=== PATIENT | male | born 1945 | race Caucasian/White ===

== ENCOUNTER 2017-10-28 11:02 | Inpatient (IN) | payer MEDICARE, OTHER ==
[2017-10-28] MEDS ORDERED: Fentanyl 100 MCG/2 ML VIAL ONE ×2 (11:15→11:40)
[2017-10-28 11:20] LABS: #Eosinphils 0.1 thou/uL (0.0-0.7); #Lymphocytes 2.5 thou/uL (1.20-3.40); #Monocytes 1.2 thou/uL (0.11-0.59); #Neutrophils 8.9 thou/uL (1.40-6.50); %Basophils 0.4 % (0.0-1.0); %Eosinophils 0.7 % (0.0-10.0); %Lymphocytes 19.5 % (21.0-51.0); %Monocytes 9.2 % (0.0-10.0); %Neutrophils 70.2 % (42.0-75.0); Hemoglobin 15.3 g/dL (14.0-18.0); Mean Corpuscular HGB CONC 33.7 g/dL (32.0-36.0); Mean Corpuscular Hemoglobin 31.5 pg (27.0-31.0); Mean Corpuscular Volume 93.7 fL (78.0-98.0); Mean Platelet Volume 6.7 fL (7.4-10.4); Platelet Count 242 thou/uL (130-400); RBC Distribution Width 12.5 % (11.5-14.5); Red Blood Cell (RBC) Count 4.86 mill/uL (4.70-6.10); White Blood Cell (WBC) Count 12.7 thou/uL (4.8-10.8)
--- NOTE | 2017-10-28 11:25 | CT ---
CT HEAD WITHOUT CONTRAST: Technique: Multiple axial tomograms were obtained through the head without IV enhancement. Indications: Level 2 trauma. Fall with injury to head. FINDINGS: Ventricles have normal size and position. Mild cortical volume loss. No evidence of intracranial hemo rrhage. No evidence of mass or infarct. Sinuses and mastoids are aerated. Prior surgical fixation of the anterior mandible. IMPRESSION: No evidence of acute intracranial hemorrhage. Findings were related to Dr. Gonzalze. POS: [facility]
[2017-10-28 11:29] LABS: PTT 26.2 SEC (22.9-36.1); Prothrombin Time 13.4 SEC (12.0-14.7)
--- NOTE | 2017-10-28 11:29 | CT ---
CT CERVICAL SPINE WITHOUT CONTRAST: Comparison: None. History: Level 2 trauma after falling 12 feet. Patient complains of right shoulder pain and neck pain . Technique: Multiple contiguous axial images were obtained in a CT of the cervical spine without contr ast. Sagittal and coronal reformats were performed. FINDINGS: There are mild degenerative changes in the cervical spine. The vertebral bodies demonstrate normal he ight and alignment without acute fracture or subluxation. No prevertebral soft tissue swelling is see n. The posterior facets are well aligned. Normal alignment of the skull base with the cervical spine is seen. IMPRESSION: Degenerative changes of the cervical spine without acute osseous abnormality. Dr. Gonzalez notified of t he findings at 11:21 a.m. on 10-28-17. POS: [facility]
[2017-10-28] MEDS ORDERED: Adacel (T-DAP) 0.5 ML VIAL ONE (11:40)
[2017-10-28 11:43] LABS: ALT (SGPT) 27 U/L (8-55); AST (SGOT) 28 U/L (5-34); Alkaline Phosphatase 48 U/L (40-150); Anion Gap 17 mmol/L (10-20); BUN (Urea Nitrogen) 11 mg/dL (8.4-25.7); Bilirubin, Total 0.8 mg/dL (0.2-1.2); Calc. Creatinine Clearance 0 mL/min (70-130); Calcium 9.3 mg/dL (7.8-10.44); Carbon Dioxide 22 mmol/L (23-31); Chloride 104 mmol/L (98-107); Estimated GFR-MDRD 69; Globulin 2.8 g/dL (2.4-3.5); Glucose 166 mg/dL (83-110); Potassium 3.7 mmol/L (3.5-5.1); Protein, Total 6.8 g/dL (5.8-8.1); Sodium 139 mmol/L (136-145)
--- NOTE | 2017-10-28 11:44 | RAD ---
RIGHT SHOULDER THREE VIEW: Indication: Post-traumatic injury of the right shoulder with pain. FINDINGS: There is moderate osteoarthritis. No fracture identified. A high riding humeral head is seen which ca n be present in the setting of chronic rotator cuff tear. Correlate clinically. IMPRESSION: 1. No acute fracture of the right shoulder. 2. Chronic findings as discussed above. POS: [facility]
--- NOTE | 2017-10-28 11:53 | CT ---
CT OF THE CHEST WITH CONTRAST CT OF THE ABDOMEN AND PELVIS WITH CONTRAST LIMITED CT OF THE THORACIC AND LUMBOSACRAL SPINE WITH CONTRAST: History: Fell from 12 ft with right shoulder pain and pelvic pain. Technique: 1. Multiple contiguous axial images were obtained in a CT of the chest with contrast. Coronal reforma ts were performed. 2. Multiple contiguous axial images were obtained in a CT of the abdomen and pelvis with contrast. Co sarahy reformats were performed. 3. Limited CT of the thoracic and lumbosacral spines were performed. Sagittal and coronal reformats w ere created based off images obtained in the chest, abdomen, and pelvic CTs. FINDINGS: CT CHEST: No pneumothorax or pleural effusion are seen. There is atelectasis in the lung bases. A calcified gra nuloma is seen in the right lower lobe. No suspicious mass or infiltrate are seen in the lungs. The heart is normal in size without focal cardiac abnormality. Calcifications in the coronary arterie s. There are calcified right hilar and mediastinal lymph nodes. The chest wall soft tissues and bones of the thorax are unremarkable. No obvious right shoulder abnor mality is seen. CT ABDOMEN/PELVIS: Patient is status post cholecystectomy. The liver, kidneys, adrenal glands, spleen, and pancreas are unremarkable. No free air is seen in the abdomen or pelvis. There is fluid on the right pelvic sidewa ll from the patient's pelvic fractures described below. Scattered diverticula are seen in the colon. The small bowel and appendix are unremarkable. No abdomi nal or pelvic lymphadenopathy are seen. Atherosclerotic calcifications are seen in the aorta. There are complex right sided pelvic fractures. There is a fracture of the right iliac wing which ext ends down to the iliac roof. There is separation of the pelvis and inward protrusion of the femoral h ead into the pelvis. Fracture of the bones surrounding the right hip joint are comminuted in appearan ce. There is also a segmental fracture of the right inferior pubic ramus. No left sided pelvic fractu res are seen. There is extensive hematoma surrounding the comminuted right hip fracture with displace ment of the urinary bladder to the left by the hematoma. No fracture fragments are seen near the urin abimael bladder. LIMITED CT OF THE THORACIC AND LUMBOSACRAL SPINE: There are moderate degenerative changes throughout the spine. The vertebral bodies and intervertebral discs demonstrate normal height and alignment without fracture or subluxation. No prevertebral soft tissue swelling is seen. IMPRESSION: 1. No evidence of acute intrathoracic abnormality. 2. No evidence of acute intraabdominal/pelvic abnormality. 3. Complex right sided pelvic fractures involving the right hip/acetabulum. 4. No evidence of acute osseous abnormality of the thoracic or lumbosacral spine. Dr. Gonzalez notified of the findings at 11:38 a.m. on 10-28-17. POS: [facility]
--- NOTE | 2017-10-28 11:54 | RAD ---
SINGLE VIEW OF THE PELVIS: Comparison: Pelvic CT 10-28-17 History: Fall with pelvic pain. FINDINGS: A single view of the pelvis shows a complex fracture involving the acetabulum of the right hip. There is protrusion of the femoral head toward the pelvis and displacement of the fracture fragments media lly. The urinary bladder is also displaced to the left. No fracture of the femur is seen. IMPRESSION: Complex acetabular fracture. POS: [facility]
--- NOTE | 2017-10-28 11:57 | RAD ---
TWO VIEWS RIGHT HIP: History: Fall with right hip pain. FINDINGS: Two views of the right hip shows a complex fracture of the acetabulum. This fracture is comminuted. T here is protrusion of the femoral head into the pelvis with displacement of the fracture fragments me dially. There is separation of the bones of the acetabulum. There is displacement of the urinary blad sp to the left. IMPRESSION: Complex comminuted right acetabular fracture. POS: [facility]
[2017-10-28] MEDS ORDERED: Ondansetron HCl/PF 4 MG/2 ML Vial ONE (12:10)
[2017-10-28] MEDS ORDERED: CEFAZOLIN/Water 2 GM/20 ML SYRINGE SLOW IVP SCH (12:15)
[2017-10-28] MEDS ORDERED: ISOVUE-370 76%-LOCM 1 ML ONE (12:31)
[2017-10-28] MEDS ORDERED: Acetaminophen 1,000 MG in Premix Bag 1 BAG IVPB SCH (12:45)
[2017-10-28 13:02] LABS: Bilirubin Negative (Negative); Blood, Urine Negative (Negative); Clarity CLEAR (Clear); Glucose, Urine (Dipstick) Negative (Negative); Leukocyte Negative (Negative); Nitrite Negative (Negative); Protein, Urine (Dipstick) Trace mg/dL (Neg-Trace); Specific Gravity, Urine 1.028 (1.002-1.036); Urobilinogen 0.2 mg/dL (0.2-1.0)
--- NOTE | 2017-10-28 13:31 | CON ---
DATE OF CONSULTATION: 10/28/2017 CHIEF COMPLAINT: Right hip pain. HISTORY OF PRESENT ILLNESS: Mr. Weston is a 71-year-old male who fell 8 feet from a ladder. He was working on a barn. He landed on his right side. He had immediate pain. He was unable to ambulate. He was taken to the emergency department by EMS. X-rays and CT scan have been completed. These styles ve demonstrated an acetabulum fracture of the right hip. No other injuries have been identified so f ar. He has received fentanyl for pain control. He is resting comfortably. PAST MEDICAL HISTORY: Prostate hypertrophy. Otherwise, he denies active medical problems. PAST SURGICAL HISTORY: No recent surgeries. ALLERGIES: None. 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 He denies tobacco, alcohol, or drug use. He is very active. Family is at bedside. FAMILY MEDICAL HISTORY: Noncontributory. REVIEW OF SYSTEMS: Positive for right hip pain and right shoulder pain. Otherwise, negative 10-poin t review of systems. MEDICATIONS: Flomax. PHYSICAL EXAMINATION: VITAL SIGNS: Stable. He is normotensive, 98% on room air. GENERAL: Lying supine in no apparent distress. HEENT: Normocephalic, atraumatic. Cervical collar is in place. RESPIRATORY: Breathing comfortably. ABDOMEN: Soft, nontender, nondistended. CARDIOVASCULAR: Pulses palpable and regular. MUSCULOSKELETAL: The patient's right lower extremity has pain with motion. He has near equal leg le ngth. He is able to flex and extend the foot and ankle. Palpable dorsalis pedis pulse. Sensation i s intact distally. The right shoulder has mild swelling. He has pain with active motion. Passive m otion is near full. IMAGES: AP pelvis x-ray, hip x-ray and CT scan of the pelvis is reviewed. The patient has a both co lumn acetabulum fracture with significant displacement and comminution. IMPRESSION: Elderly male with both column right acetabulum fracture. PLAN: At this point, the patient will be admitted to the hospital. He will have pain control. He w ill have tertiary workup and survey for trauma. He will have DVT prophylaxis. He should be n.p.o. m idnight. I have reviewed his injury with him and surgical plan. We will plan for open reduction int ernal fixation of the right acetabulum tomorrow. He is aware of prolonged recovery process including approximately 2 months of nonweightbearing. He is aware of risk, which do include post-traumatic ar thritis, the need for further surgery and others such as DVT, PE, nerve or vascular injury or medical complication.
[2017-10-28 13:39] LABS: Magnesium 2.2 mg/dL (1.6-2.6)
[2017-10-28 13:49] LABS: Phosphorus 1.1 mg/dL (2.3-4.7)
[2017-10-28] MEDS ORDERED: Fentanyl 100 MCG/2 ML VIAL SLOW IVP PRN (14:36)
[2017-10-28] MEDS ORDERED: Dextrose 50% Abboject 50 ML SYRINGE SLOW IVP PRN (14:36)
[2017-10-28] MEDS ORDERED: Dextrose 5% in Water 1,000 ML IV PRN (14:36)
--- NOTE | 2017-10-28 15:50 | HP ---
DATE OF ADMISSION: 10/28/2017 ADMITTING PHYSICIAN: Jung Saldaña DO CONSULTING PHYSICIAN: Dr. Fredy Pritchett, Orthopedics. REASON FOR HOSPITALIZATION: Fall from ladder. HPI: Mr. Weston is a 71 year old male who was in his usual state of health today when he was approximately 8 feet up on a ladder pulling some boards off of a barn when one of the boards gave way and he fell off of the ladder onto the ground. He denies LOC. He reports immediate right hip and right shoulder pain. He was transported to [facility] via [facility]. He was a level two trauma activation. He was hemodynamically stable and neurologically intact in the ED. A right acetabular fracture was identified. Trauma was consulted for admission and management. Dr. Pritchett, Orthopedics, was consulted by the ED physician. PAST MEDICAL HISTORY: 1. Diverticulitis. 2. Benign prostatic hypertrophy. PAST SURGICAL HISTORY: 1. Sigmoidectomy. 2. Cholecystectomy. 3. Left inguinal hernia repair. 4. Jaw reconstruction. SOCIAL HISTORY: Alcohol, none. Tobacco, former cigarette smoker and now uses smokeless tobacco. Drugs, none. CURRENT MEDICATIONS: 1. Flomax 0.4 mg once daily. 2. Avodart 0.5 mg once daily. 3. Aspirin 81 mg once daily. 4. Multivitamin once daily. ALLERGIES: 1. CODEINE. 2. MORPHINE. 3. DEMEROL. 4. PENICILLIN. LABORATORY DATA: CBC: WBC 12.7, RBC 4.86, hemoglobin 15.3, hematocrit 45.5, platelets 242,000. Coagulation: PT 13.4, INR 1.0. Chemistry: Sodium 139, potassium 3.7, chloride 104, carbon dioxide 22, BUN 11, creatinine 1.05, glucose 166, calcium 9.3, total bilirubin 0.8, AST 28, ALT 27, alkaline phosphatase 48. EKG: Rate 84, right bundle branch block. REVIEW OF SYSTEMS: Constitutional: The patient denies fever, chills, recent weight loss or generalized malaise. HEENT: The patient denies otorrhea, rhinorrhea, neck pain or sore throat. Cardiovascular: The patient denies chest pain, palpitations or syncope. Respiratory: The patient denies shortness of breath, wheezing. Abdomen: The patient denies abdominal pain, nausea, vomiting, diarrhea or constipation. Musculoskeletal: The patient reports pain to the right shoulder with movement. The patient reports pain to the right hip with movement. Denies focal deficit or numbness, tingling. Neurologic: Denies seizures or focal deficit. Skin: Denies rashes or skin changes. Hemolymphatic: Denies abnormal bleeding. PHYSICAL EXAMINATION: VITAL SIGNS: Blood pressure 143/86, pulse 83, respirations 17, temperature 98.4 , pain 7/10, O2 sat 98% on 2 liters O2. CONSTITUTIONAL: A 71-year-old man, appears consistent with stated age, no acute distress, well nourished, well developed. HEENT: Cervical collar in place. Atraumatic, normocephalic. Denies posterior neck tenderness. Trachea midline. No JVD. PULMONARY/CHEST: Bilateral breath sounds clear. Chest movement symmetrical. CARDIOVASCULAR: Regular rate and rhythm. ABDOMEN: Soft, nontender, nondistended. Pelvis with pain when moving right hip. EXTREMITIES: Pain with movement of right shoulder. Neurovascularly intact in all extremities. Cap refill brisk. 2+ pulses. NEUROLOGIC: GCS 15. Awake, alert, oriented x3. SKIN: Warm, dry, normal in color. BACK: No tenderness. ASSESSMENT: 1. Status post fall from height, approximately 8 feet. 2. Right acetabular comminuted fracture. PLAN: 1. Admit to hospital by Trauma Services. 2. Consult Dr. Pritchett, Orthopedics. Dr. Pritchett reports he plans to take the patient to OR tomorrow. 3. Check a.m. labs. 4. Regular diet. N.p.o. after midnight. 5. Scheduled IV Tylenol for pain control with fentanyl for breakthrough pain. 6. Physical and occupational therapy evaluation with orthopedic restrictions postoperatively. 7. Case management for discharge planning. The patient was seen and examined with Dr. Saldaña who agrees with plan. [facility]
[2017-10-28 16:07] LABS: Magnesium 2.2 mg/dL (1.6-2.6); Phosphorus 2.9 mg/dL (2.3-4.7)
[2017-10-28] MEDS: Acetaminophen 1,000 MG in Premix Bag 1 BAG IVPB SCH (18:19)
[2017-10-28] MEDS: traMADol HCl 50 MG TAB PO PRN (19:13)
[2017-10-28] MEDS: Ondansetron HCl/PF 4 MG/2 ML Vial IVP PRN (19:14)
[2017-10-28] MEDS ORDERED: Ketorolac Tromethamine 30 MG/ML VIAL IVP SCH (19:15)
[2017-10-28] MEDS: Cyclobenzaprine 10 MG TAB PO PRN (20:36)
[2017-10-28] MEDS: Famotidine/PF 20 mg/2ml Vial SLOW IVP SCH (21:22)
[2017-10-29] MEDS: Acetaminophen 1,000 MG in Premix Bag 1 BAG IVPB SCH ×4 (00:22→19:01)
[2017-10-29] MEDS: Sodium Chloride 0.9% 1,000 ML IV SCH ×4 (00:48→20:19)
[2017-10-29] MEDS: traMADol HCl 50 MG TAB PO PRN ×2 (01:28→22:31)
[2017-10-29] MEDS: Ondansetron HCl/PF 4 MG/2 ML Vial IVP PRN (01:28)
[2017-10-29] MEDS: Cyclobenzaprine 10 MG TAB PO PRN ×2 (05:21→22:31)
[2017-10-29 06:24] LABS: #Basophils 0.1 thou/uL (0.0-0.2); #Eosinphils 0.1 thou/uL (0.0-0.7); #Lymphocytes 1.9 thou/uL (1.20-3.40); #Neutrophils 7.7 thou/uL (1.40-6.50); %Basophils 0.5 % (0.0-1.0); %Eosinophils 0.7 % (0.0-10.0); %Monocytes 9.5 % (0.0-10.0); %Neutrophils 71.3 % (42.0-75.0); Hemoglobin 12.2 g/dL (14.0-18.0); Mean Corpuscular HGB CONC 33.3 g/dL (32.0-36.0); Mean Corpuscular Hemoglobin 31.3 pg (27.0-31.0); Mean Corpuscular Volume 93.9 fL (78.0-98.0); Mean Platelet Volume 6.9 fL (7.4-10.4); Platelet Count 203 thou/uL (130-400); RBC Distribution Width 12.6 % (11.5-14.5); Red Blood Cell (RBC) Count 3.91 mill/uL (4.70-6.10); White Blood Cell (WBC) Count 10.7 thou/uL (4.8-10.8)
[2017-10-29 06:40] LABS: Anion Gap 8 mmol/L (10-20); BUN (Urea Nitrogen) 10 mg/dL (8.4-25.7); Calc. Creatinine Clearance 0 mL/min (70-130); Calcium 7.8 mg/dL (7.8-10.44); Carbon Dioxide 25 mmol/L (23-31); Chloride 105 mmol/L (98-107); Estimated GFR-MDRD 85; Glucose 122 mg/dL (83-110); Magnesium 2.1 mg/dL (1.6-2.6); Phosphorus 3.4 mg/dL (2.3-4.7); Potassium 4.1 mmol/L (3.5-5.1); Sodium 134 mmol/L (136-145)
[2017-10-29] MEDS ORDERED: Clindamycin/D5W 900 MG in Premix Bag 1 BAG IVPB SCH (08:00)
[2017-10-29] MEDS ORDERED: Clindamycin/D5W 900 mg/50 ml Premix Bag ONE (10:04)
[2017-10-29] MEDS ORDERED: Levofloxacin 500 mg/D5W 100 ml Premix Bag ONE (10:05)
[2017-10-29] MEDS ORDERED: Fentanyl 250 MCG/5 ML VIAL ONE (10:37)
--- NOTE | 2017-10-29 11:52 | PRG ---
DATE OF SERVICE: 10/29/2017 ATTENDING PHYSICIAN: Dr. Jung Saldaña SUBJECTIVE: Mr. Weston is a 71-year-old male who was admitted 1 day ago after a fall from an 8 foot ladder when he was working on his barn. He was evaluated in the ER. A right acetabular fracture wa s identified. He was admitted to the hospital by the Trauma Service. Dr. Pritchett, Orthopedics, wa s consulted. The patient is to go to OR today for fixation of fracture. OBJECTIVE: VITAL SIGNS: Temperature 98.0, pulse 56, respirations 18, O2 sat 94% on room air, blood pressure 122 /70. HEENT: Atraumatic, normocephalic. PULMONARY: Bilateral breath sounds clear. No respiratory distress. HEART: Regular rate and rhythm. Heart sounds normal. ABDOMEN: Soft, nontender, nondistended. Pain to the right hip with palpation and movement. EXTREMITIES: Cap refill brisk in all extremities, 2+ pulses in all extremities. Neurovascularly int act. NEUROLOGIC: GCS 15. Awake, alert, oriented x3. LABORATORY DATA: CBC: WBC 10.7, RBC 3.91, hemoglobin 12.2, hematocrit 36.7, platelets 203. [employer] ry: Sodium 134, potassium 4.1, chloride 105, carbon dioxide 25, BUN 10, creatinine 0.88, glucose 122 , calcium 7.8, phosphorus 3.4, magnesium 2.1. ASSESSMENT: 1. Status post fall from height. 2. Right acetabular fracture. 3. Acute traumatic pain, well controlled with adjustment of pain medication yesterday. PLAN: 1. The patient to OR today with Dr. Pritchett. 2. Continue analgesia as ordered. 3. Restart home medications as appropriate. 4. Physical and occupational therapy with orthopedic restrictions postoperatively. 5. Rehabilitation referral sent. 6. Pepcid for gastritis prophylaxis. 7. SCDs for DVT prophylaxis until cleared for chemical DVT prophylaxis by Orthopedic Service. The patient was seen and examined with Dr. Saldaña who agrees with the plan.
[2017-10-29] MEDS: Famotidine/PF 20 mg/2ml Vial SLOW IVP SCH (12:35)
[2017-10-29] MEDS ORDERED: Albumin 5% 500 ML ONE (13:53)
[2017-10-29] MEDS ORDERED: CeleCOXIB 100 MG CAP PO PRN (14:12)
[2017-10-29] MEDS: Tamsulosin HCl 0.4 MG CAP PO SCH (14:51)
[2017-10-29] MEDS: Dutasteride 0.5 MG CAP PO SCH (14:51)
[2017-10-29] MEDS ORDERED: Fentanyl 100 MCG/2 ML VIAL ONE (15:29)
--- NOTE | 2017-10-29 15:40 | RAD ---
THREE VIEWS OF THE PELVIS 10/29/17 COMPARISON: CT of the pelvis 10/28/17 and pelvic/hip radiographs 10/28/17. HISTORY: Complex right acetabular fracture. FINDINGS/IMPRESSION: Three limited fluoroscopic views of the right hip are submitted for interpretation. The patient is st atus post plate and screw fixation of the complex acetabular fracture. There still appears to be disp lacement of a fracture fragment medially. The femoral head appears better seated within the acetabulu m than on the CT and the preoperative radiograph. POS: [facility]
[2017-10-29 17:13] LABS: #Lymphocytes 0.9 thou/uL (1.20-3.40); #Monocytes 1.1 thou/uL (0.11-0.59); %Basophils 0.1 % (0.0-1.0); %Eosinophils 0.1 % (0.0-10.0); %Lymphocytes 6.1 % (21.0-51.0); %Monocytes 7.6 % (0.0-10.0); %Neutrophils 86.1 % (42.0-75.0); Hemoglobin 9.3 g/dL (14.0-18.0); Mean Corpuscular HGB CONC 33.5 g/dL (32.0-36.0); Mean Corpuscular Hemoglobin 31.8 pg (27.0-31.0); Mean Corpuscular Volume 94.9 fL (78.0-98.0); Mean Platelet Volume 6.7 fL (7.4-10.4); Platelet Count 178 thou/uL (130-400); RBC Distribution Width 12.5 % (11.5-14.5); Red Blood Cell (RBC) Count 2.93 mill/uL (4.70-6.10)
[2017-10-29 17:31] LABS: Anion Gap 10 mmol/L (10-20); BUN (Urea Nitrogen) 12 mg/dL (8.4-25.7); Calc. Creatinine Clearance 0 mL/min (70-130); Calcium 7.6 mg/dL (7.8-10.44); Carbon Dioxide 22 mmol/L (23-31); Chloride 106 mmol/L (98-107); Estimated GFR-MDRD 74; Glucose 157 mg/dL (83-110); Phosphorus 2.8 mg/dL (2.3-4.7); Potassium 4.3 mmol/L (3.5-5.1); Sodium 134 mmol/L (136-145)
--- NOTE | 2017-10-29 18:57 | OP ---
DATE OF PROCEDURE: 10/29/2017 OPERATION: Open reduction internal fixation of right both column acetabulum fracture. PREOPERATIVE DIAGNOSIS: Right both column acetabulum fracture. POSTOPERATIVE DIAGNOSIS: Right both column acetabulum fracture. COMPLICATIONS: None. ESTIMATED BLOOD LOSS: 1200 mL SURGEON: Fredy Pritchett M.D. ALLEY CLEANER: Dr. Delonte Kerr. IMPLANTS: A 7-hole Synthes pelvic reconstruction plate with multiple nonlocking screws. INDICATIONS: Mr. Weston is a 71-year-old male who fell from a ladder. He fractured his right aceta bulum. He was indicated for open reduction internal fixation to restore anatomic alignment and provi de stability to his hip. Risks have been reviewed in detail. He has elected to proceed with the ope ration. Risks are extensive and do include nerve or vascular injury, DVT, PE, infection, malunion, p osttraumatic arthritis and the need for further surgery such as hip arthroplasty. He and his family are aware of and want to proceed. DESCRIPTION OF PROCEDURE: Mr. Weston was identified in the preoperative holding area. His correct extremity was marked. He was carried to the operating room. He was positioned supine initially. Ge neral anesthesia was induced. We then turned the patient into the prone position. He was given intr avenous antibiotics. The right lower extremity was prepped and draped in sterile fashion. At this point, we made a small incision over his knee. We inserted a Steinmann pin through the dista l femur. This was attached to a traction frame and 50-pound weight were added. This allowed longitu dinal traction on the limb. At this point, we proceeded with Amrik approach to the hip. We dissected down through the subcutane ous tissues to the fascia which was incised. We then exposed the short external rotator . The piriformis tendon was incised and tagged. We then elevated the from the posterior pelvis. We encountered the comminuted and displaced fracture with multiple fracture lines. The quadrilateral pl ate was severely medialized. We placed a corkscrew in the greater trochanter and this allowed us to pull laterally reducing the quadrilateral plate. At this point, we used intraoperative x-ray as well as K-wires and reduction clamp to obtain an anato paul reduction of the posterior aspect of the fracture in the quadrilateral plate. Once this was acco mplished, we applied a 7-hole Synthes pelvic reconstruction plate. Two screws were placed proximally and 2 screws were placed distally. This held our reduction and applying rigid fixation to the fract ure. Finally, we placed a lag screw and a posterior wall component which was a free fracture fragmen t. We took again x-ray images in orthogonal planes including obturator and iliac oblique x-rays. We were satisfied with hardware placement. The posterior acetabulum fracture was well reduced. There was some distraction of the anterior most component of the fracture. We decided to accept this. We then thoroughly irrigated with copious lavage. We closed with a #2 Vicryl suture, followed by 2-0 Vi cryl suture and doug for the skin. A sterile dressing was applied at this point and the traction pin was removed. The patient was taken to the recovery room in good condition without complication.
[2017-10-29] MEDS: Clindamycin/D5W 900 MG in Premix Bag 1 BAG IVPB SCH (19:01)
[2017-10-29] MEDS: Famotidine 20 MG TAB PO SCH ×2 (20:16→20:19)
[2017-10-29] MEDS ORDERED: PROPOFOL 200 MG/20 ML VIAL ONE (20:33)
[2017-10-29] MEDS ORDERED: Lidocaine 1% PF 5 ML VIAL ONE (20:33)
[2017-10-29] MEDS ORDERED: Esmolol 100 MG/10 ML VIAL ONE (20:33)
[2017-10-29] MEDS ORDERED: ePHEDrine/0.9% NaCl/PF SYRINGE 50 mg/10 ml ONE ×2 (20:33)
[2017-10-29] MEDS ORDERED: Ondansetron HCl/PF 4 MG/2 ML Vial ONE (20:33)
[2017-10-29] MEDS ORDERED: Glycopyrrolate 0.2 MG/ML 5 ML SYRINGE ONE (20:33)
[2017-10-29] MEDS ORDERED: PHENYLEPHRINE-NS 100 MCG/ML 10 ML SYRINGE ONE (20:33)
[2017-10-29 23:25] VITALS: BMI 26.4
[2017-10-30] MEDS: Clindamycin/D5W 900 MG in Premix Bag 1 BAG IVPB SCH ×2 (01:51→10:03)
[2017-10-30] MEDS: Cyclobenzaprine 10 MG TAB PO PRN (04:47)
[2017-10-30] MEDS: traMADol HCl 50 MG TAB PO PRN (04:47)
[2017-10-30 06:26] LABS: #Lymphocytes 1.5 thou/uL (1.20-3.40); #Neutrophils 8.1 thou/uL (1.40-6.50); %Basophils 0.2 % (0.0-1.0); %Eosinophils 0.1 % (0.0-10.0); %Lymphocytes 14.1 % (21.0-51.0); %Monocytes 9.3 % (0.0-10.0); %Neutrophils 76.3 % (42.0-75.0); Mean Corpuscular HGB CONC 34.9 g/dL (32.0-36.0); Mean Corpuscular Hemoglobin 33.1 pg (27.0-31.0); Mean Corpuscular Volume 94.6 fL (78.0-98.0); Mean Platelet Volume 6.7 fL (7.4-10.4); Platelet Count 149 thou/uL (130-400); RBC Distribution Width 12.5 % (11.5-14.5); Red Blood Cell (RBC) Count 2.42 mill/uL (4.70-6.10); White Blood Cell (WBC) Count 10.6 thou/uL (4.8-10.8)
[2017-10-30 06:50] LABS: Anion Gap 10 mmol/L (10-20); BUN (Urea Nitrogen) 14 mg/dL (8.4-25.7); Calc. Creatinine Clearance 94 mL/min (70-130); Calcium 7.7 mg/dL (7.8-10.44); Carbon Dioxide 25 mmol/L (23-31); Chloride 105 mmol/L (98-107); Estimated GFR-MDRD 88; Glucose 134 mg/dL (83-110); Magnesium 1.8 mg/dL (1.6-2.6); Phosphorus 2.4 mg/dL (2.3-4.7); Potassium 4.4 mmol/L (3.5-5.1); Sodium 136 mmol/L (136-145)
[2017-10-30] MEDS: Ascorbic Acid 500 mg Chewable Tablet PO SCH ×2 (10:01→20:32)
[2017-10-30] MEDS: Ferrous Sulfate 325 MG TAB PO SCH ×2 (10:02→17:31)
[2017-10-30] MEDS: Dutasteride 0.5 MG CAP PO SCH (10:02)
[2017-10-30] MEDS: Tamsulosin HCl 0.4 MG CAP PO SCH (10:02)
[2017-10-30] MEDS: Famotidine 20 MG TAB PO SCH ×2 (10:02→20:32)
[2017-10-30] MEDS ORDERED: traMADol HCl 50 MG TAB PO PRN (10:03)
[2017-10-30] MEDS: Sodium Chloride 0.9% 1,000 ML IV SCH ×3 (10:07→20:31)
[2017-10-30] MEDS: Enoxaparin Sodium 30 MG/0.3 ML SYRINGE SC SCH ×2 (10:07→20:31)
[2017-10-30] MEDS: Acetaminophen 500 MG TAB PO SCH ×3 (10:30→22:50)
[2017-10-30] MEDS: traMADol HCl 50 MG TAB PO SCH ×3 (10:30→22:50)
[2017-10-30] MEDS: CeleCOXIB 100 MG CAP PO SCH ×2 (10:31→20:32)
--- NOTE | 2017-10-30 13:59 | PRG ---
DATE OF SERVICE: 10/30/2017 ATTENDING PHYSICIAN: Dr. Jung Saldaña SUBJECTIVE: Mr. Weston is a 71-year-old male who was admitted 2 days ago after a fall from an 8 juan t ladder while working on a barn. He is now postoperative day #1, status post ORIF of right both col umn acetabular fracture. He began working with physical and occupational therapy today. When mobile pain was not well controlled. OBJECTIVE: VITAL SIGNS: Temperature 98.3, pulse 91, respirations 18, O2 sat 93% on room air, blood pressure 122 /62. HEENT: Atraumatic, normocephalic. PULMONARY: Bilateral breath sounds clear. No respiratory distress. HEART: Regular rate and rhythm. Heart sounds normal. ABDOMEN: Soft, nontender, nondistended. EXTREMITIES: Cap refill brisk all extremities, 2+ pulses all extremities. Neurovascularly intact. NEUROLOGIC: GCS 15. Awake, alert and oriented x3. LABORATORY DATA: CBC: WBC 10.6, RBC 2.42, hemoglobin 8.0, down from 9.3 yesterday. Hematocrit 22.9 , platelets 149. Chemistry: Sodium 136, potassium 4.4, chloride 105, carbon dioxide 25, BUN 14, cre atinine 0.85, glucose 134, calcium 7.7, phosphorus 2.4, magnesium 1.8. ASSESSMENT: 1. Status post fall from height. 2. Right acetabular fractures. 3. Postoperative day #1 status post open reduction and internal fixation of right acetabulum. 4. Acute traumatic pain, poorly controlled. 5. History of benign prostatic hypertrophy. PLAN: 1. Adjust pain medicine. We will schedule Tylenol and tramadol. We will also schedule Flexeril. 2. Celebrex added by Orthopedic Service, Dr. Kerr. Patient to be on Celebrex for 3-4 weeks to l ower risk for heterotopic bone formation. 3. Continue mobilizing with physical and occupational therapy. 4. Continue home medications as appropriate. 5. Encourage incentive spirometry, pulmonary toilet. 6. Pepcid for gastritis prophylaxis. 7. SCDs for deep venous thrombosis prophylaxis. Lovenox added this morning after discussion with Or thopedic Service. The patient was seen and examined with Dr. Saldaña who agrees with plan.
[2017-10-30] MEDS: Cyclobenzaprine 10 MG TAB PO SCH ×2 (14:08→20:32)
[2017-10-31] MEDS: Acetaminophen 500 MG TAB PO SCH ×4 (05:51→22:13)
[2017-10-31] MEDS: traMADol HCl 50 MG TAB PO SCH ×4 (05:52→22:11)
--- NOTE | 2017-10-31 09:07 | PQF ---
CLINICAL DOCUMENTATION IMPROVEMENT CLARIFICATION FORM: ICD-10 Updated PLEASE DO AN ADDENDUM TO THE PROGRESS NOTE WITH ANY DOCUMENTATION UPDATES OR ADDITIONS AND CARRY THROUGH TO DC SUMMARY. THANK YOU. DATE: 10/31 ATTN: DR. GEM CONTI Please exercise your independent, professional judgment in responding to the clarification form. Clinical indicators are provided on the bottom of this form for your review. Please check appropriate box(s): [ x] Acute blood loss anemia [ ] Post-op anemia related to acute blood loss [ ] Other diagnosis [ ] Unable to determine For continuity of documentation, please document condition throughout progress notes and discharge summary. Thank You. CLINICAL INDICATORS - SIGNS / SYMPTOMS / LABS H/H: 15.3/45.5 (ADMIT) 12.2/36.7; 9.3/27.8 (10/29) 8.0/22.9 (10/30) 10/29 - OPERATIVE NOTE: EBL 1200 ML RISK FACTOR: ORIF RIGHT BOTH COLUMN ACETABULUM FRACTURE W/EBL 1200 ML TREATMENT: SERIAL H/H (10/28 -) TYPE & SCREEN BLOOD (10/28) THANK YOU! Lucia (This form is maintained as a part of the permanent medical record) 2014 [employer] All Rights Reserved Lucia Durán RN, BSN [email or web address] Office: [phone] [facility]ENTER[facility]
[2017-10-31 10:04] LABS: #Eosinphils 0.1 thou/uL (0.0-0.7); #Lymphocytes 1.9 thou/uL (1.20-3.40); #Monocytes 1.2 thou/uL (0.11-0.59); #Neutrophils 8.1 thou/uL (1.40-6.50); %Basophils 0.4 % (0.0-1.0); %Eosinophils 0.8 % (0.0-10.0); %Lymphocytes 16.9 % (21.0-51.0); %Monocytes 10.2 % (0.0-10.0); %Neutrophils 71.8 % (42.0-75.0); Mean Corpuscular HGB CONC 33.8 g/dL (32.0-36.0); Mean Corpuscular Volume 94.7 fL (78.0-98.0); Mean Platelet Volume 6.9 fL (7.4-10.4); Platelet Count 166 thou/uL (130-400); RBC Distribution Width 12.6 % (11.5-14.5); Red Blood Cell (RBC) Count 2.19 mill/uL (4.70-6.10); White Blood Cell (WBC) Count 11.3 thou/uL (4.8-10.8)
[2017-10-31] MEDS: Famotidine 20 MG TAB PO SCH ×2 (10:05→21:13)
[2017-10-31] MEDS: Ascorbic Acid 500 mg Chewable Tablet PO SCH ×3 (10:05→21:17)
[2017-10-31] MEDS: Dutasteride 0.5 MG CAP PO SCH (10:05)
[2017-10-31] MEDS: Cyclobenzaprine 10 MG TAB PO SCH ×3 (10:05→21:13)
[2017-10-31] MEDS: Enoxaparin Sodium 30 MG/0.3 ML SYRINGE SC SCH ×2 (10:06→21:13)
[2017-10-31] MEDS: Tamsulosin HCl 0.4 MG CAP PO SCH (10:06)
[2017-10-31] MEDS: CeleCOXIB 100 MG CAP PO SCH ×2 (10:06→21:13)
[2017-10-31] MEDS: Ferrous Sulfate 325 MG TAB PO SCH ×2 (10:06→16:49)
[2017-10-31 10:36] LABS: Anion Gap 11 mmol/L (10-20); BUN (Urea Nitrogen) 13 mg/dL (8.4-25.7); Calc. Creatinine Clearance 106 mL/min (70-130); Calcium 7.7 mg/dL (7.8-10.44); Carbon Dioxide 24 mmol/L (23-31); Chloride 105 mmol/L (98-107); Estimated GFR-MDRD Greater than 90; Glucose 103 mg/dL (83-110); Magnesium 1.8 mg/dL (1.6-2.6); Phosphorus 1.3 mg/dL (2.3-4.7); Potassium 3.8 mmol/L (3.5-5.1); Sodium 136 mmol/L (136-145)
[2017-10-31] MEDS: traMADol HCl 50 MG TAB PO PRN (14:40)
[2017-10-31] MEDS ORDERED: Potassium Phosphate 30 MMOL in Sodium Chloride 0.9% 250 ML 250 ML IVPB SCH (15:15)
--- NOTE | 2017-10-31 17:28 | PRG ---
DATE OF SERVICE: 10/31/2017 SUBJECTIVE: The patient is postop day #2 status post fall from a ladder in which he sustained a righ t both column acetabular fracture. He underwent open reduction and internal fixation of same. He is doing better today. Yesterday, he had issues with pain control, also noted that his hemoglobin drop ped to 7 today and we will transfuse him. Otherwise, the patient is doing well. His pain is better controlled today. He is tolerating a diet and is awaiting to work with physical and occupational the rapy. PHYSICAL EXAMINATION: VITAL SIGNS: Temperature is 98.4, heart rate 83, blood pressure 117/63, respirations 16, oxygen satu ration is 94% on room air. GENERAL: The patient is resting comfortably in bed. He is awake, alert, and oriented x3. Bart c edel scale is 15. HEENT: Unremarkable. LUNGS: Clear to auscultation with good inspiratory and expiratory effort. HEART: Regular rate and rhythm. ABDOMEN: Soft, flat, nontender with active bowel sounds. Postop dressings are clean, dry, and intac t. EXTREMITIES: Neurovascularly intact x4. LABORATORY DATA: White blood cell count 11.3, hemoglobin 7.0, hematocrit 20.7, platelets 166. Sodiu m 136, potassium 3.8, chloride 105, CO2 of 24, BUN 13, creatinine 0.76, glucose 103, magnesium 1.8, p hosphorus 1.3. RADIOGRAPHS: There are no radiographs to review this morning. ASSESSMENT AND PLAN: 1. Status post fall from ladder. 2. Right acetabular fracture, status post open reduction and internal fixation. 3. Acute blood loss anemia. 4. Hypophosphatemia. Plan will be to transfuse 1 unit of packed red blood cells, replace his electrolytes, supportive care and begin physical and occupational therapy and await final disposition with rehabilitation. The ev aluation and examination were done with Dr. Saldaña this morning during rounds.
[2017-10-31] MEDS: Magnesium Oxide 400 MG TAB PO SCH (21:13)
[2017-11-01] MEDS: traMADol HCl 50 MG TAB PO PRN ×3 (03:46→20:22)
[2017-11-01] MEDS: traMADol HCl 50 MG TAB PO SCH ×3 (05:08→17:19)
[2017-11-01] MEDS: Acetaminophen 500 MG TAB PO SCH ×3 (05:09→17:19)
[2017-11-01 05:52] LABS: #Eosinphils 0.1 thou/uL (0.0-0.7); #Monocytes 0.9 thou/uL (0.11-0.59); #Neutrophils 9.2 thou/uL (1.40-6.50); %Basophils 0.2 % (0.0-1.0); %Eosinophils 0.7 % (0.0-10.0); %Lymphocytes 9.2 % (21.0-51.0); %Monocytes 8.2 % (0.0-10.0); %Neutrophils 81.7 % (42.0-75.0); Hemoglobin 8.3 g/dL (14.0-18.0); Mean Corpuscular HGB CONC 33.5 g/dL (32.0-36.0); Mean Corpuscular Hemoglobin 31.3 pg (27.0-31.0); Mean Corpuscular Volume 93.5 fL (78.0-98.0); Mean Platelet Volume 6.9 fL (7.4-10.4); Platelet Count 209 thou/uL (130-400); RBC Distribution Width 13.5 % (11.5-14.5); Red Blood Cell (RBC) Count 2.64 mill/uL (4.70-6.10); White Blood Cell (WBC) Count 11.2 thou/uL (4.8-10.8)
[2017-11-01 06:53] LABS: Anion Gap 13 mmol/L (10-20); BUN (Urea Nitrogen) 17 mg/dL (8.4-25.7); Calc. Creatinine Clearance 102 mL/min (70-130); Calcium 7.9 mg/dL (7.8-10.44); Carbon Dioxide 23 mmol/L (23-31); Chloride 101 mmol/L (98-107); Estimated GFR-MDRD Greater than 90; Glucose 126 mg/dL (83-110); Magnesium 2.2 mg/dL (1.6-2.6); Phosphorus 2.1 mg/dL (2.3-4.7); Potassium 3.6 mmol/L (3.5-5.1); Sodium 133 mmol/L (136-145)
[2017-11-01] MEDS ORDERED: Potassium Phosphate 30 MMOL in Sodium Chloride 0.9% 250 ML 250 ML IVPB SCH (08:00)
[2017-11-01] MEDS: Dutasteride 0.5 MG CAP PO SCH (09:01)
[2017-11-01] MEDS: Magnesium Oxide 400 MG TAB PO SCH ×2 (09:01→20:23)
[2017-11-01] MEDS: Ferrous Sulfate 325 MG TAB PO SCH ×2 (09:01→17:18)
[2017-11-01] MEDS: Famotidine 20 MG TAB PO SCH ×2 (09:01→20:23)
[2017-11-01] MEDS: CeleCOXIB 100 MG CAP PO SCH ×2 (09:01→20:23)
[2017-11-01] MEDS: Cyclobenzaprine 10 MG TAB PO SCH ×3 (09:01→20:23)
[2017-11-01] MEDS: Tamsulosin HCl 0.4 MG CAP PO SCH (09:01)
[2017-11-01] MEDS: Enoxaparin Sodium 30 MG/0.3 ML SYRINGE SC SCH ×2 (09:02→20:24)
[2017-11-01] MEDS: Ascorbic Acid 500 mg Chewable Tablet PO SCH ×2 (09:02→20:22)
[2017-11-01] MEDS: Aspirin 81 mg Enteric Coated Tablet PO SCH (20:22)
[2017-11-02] MEDS: traMADol HCl 50 MG TAB PO SCH ×5 (00:37→23:52)
[2017-11-02] MEDS: Acetaminophen 500 MG TAB PO SCH ×5 (00:37→23:51)
--- NOTE | 2017-11-02 01:54 | PRG ---
DATE OF SERVICE: 11/01/2017 SUBJECTIVE: The patient is postop day 3 status post fall from a ladder, in which he sustained a righ t both column acetabular fracture. He has undergone open reduction internal fixation of the same. Y esterday, he required a transfusion of 1 unit of packed red blood cells due to a hemoglobin of 7. Ov ernight, he had no issues. This morning, he is tolerating a diet. His pain is controlled and he is out of bed in a chair. PHYSICAL EXAMINATION: VITAL SIGNS: Temperature is 98, heart rate 95, blood pressure 144/72, respirations 14, oxygen satura tion is 98% on 2 liters via nasal cannula. GENERAL: The patient is awake, alert, oriented x3. [place] coma scale is 15. HEENT: Unremarkable. LUNGS: Clear to auscultation with good inspiratory and expiratory effort. HEART: Regular rate and rhythm. ABDOMEN: Soft, flat, nontender with active bowel sounds. Postop dressings are clean, dry, and intac t. EXTREMITIES: Neurovascularly intact. LABORATORY FINDINGS: White blood cell count 11.2, hemoglobin 8.3, hematocrit 24.6, platelets 209. S odium 133, potassium 3.6, chloride 101, CO2 of 23, BUN 17, creatinine 0.79, glucose 126, magnesium 2. 2, phosphorus 2.1. There are no radiographs to review this morning. ASSESSMENT: 1. Status post fall from ladder. 2. Right acetabular fracture, status post open reduction internal fixation. 3. Acute blood loss anemia, improved. PLAN: Plan will be to continue supportive care, physical and occupational therapy, and await for destinee abilitation decision. The evaluation and examination were discussed with Dr. Saldaña during rounds thi s morning.
--- NOTE | 2017-11-02 08:04 | ULT ---
DOPPLER VENOUS ULTRASOUND OF BOTH LOWER EXTREMITIES: INDICATION: Bilateral lower extremity edema. TECHNIQUE: Rodrigues scale, color Doppler, and vascular duplex with spectral analysis was performed of the deep venou s structures of both lower extremities. The common femoral vein, superficial femoral vein, popliteal vein, posterior tibial vein, proximal greater saphenous, and proximal profunda veins were assessed bi laterally. FINDINGS: There is normal compression, flow, and augmentation seen within the venous structures of both lower e xtremities. There is some cardiac transition within the venous waveform on the spectral Doppler imag es which may be related to some cardiac dysfunction. Recommend correlation with the clinical exam. IMPRESSION: No evidence of deep vein thrombosis. Some cardiac waveforms seen within the venous structures of bot h lower extremities can be seen with cardiac dysfunction such as congestive heart failure. Recommend correlation clinically. POS: LIZ
[2017-11-02] MEDS: Cyclobenzaprine 10 MG TAB PO SCH ×3 (08:34→20:39)
[2017-11-02] MEDS: Ferrous Sulfate 325 MG TAB PO SCH ×2 (08:34→17:14)
[2017-11-02] MEDS: Tamsulosin HCl 0.4 MG CAP PO SCH (08:34)
[2017-11-02] MEDS: Magnesium Oxide 400 MG TAB PO SCH ×2 (08:34→20:40)
[2017-11-02] MEDS: CeleCOXIB 100 MG CAP PO SCH ×2 (08:34→20:39)
[2017-11-02] MEDS: Famotidine 20 MG TAB PO SCH ×2 (08:34→20:39)
[2017-11-02] MEDS: Aspirin 81 mg Enteric Coated Tablet PO SCH ×2 (08:34→20:39)
[2017-11-02] MEDS: Dutasteride 0.5 MG CAP PO SCH (08:34)
[2017-11-02] MEDS: Enoxaparin Sodium 30 MG/0.3 ML SYRINGE SC SCH ×2 (08:35→20:40)
[2017-11-02] MEDS: traMADol HCl 50 MG TAB PO PRN (08:35)
[2017-11-02] MEDS: Ascorbic Acid 500 mg Chewable Tablet PO SCH ×2 (08:35→20:39)
[2017-11-02] MEDS ORDERED: Senokot 8.6 MG TAB PO SCH (23:45)
[2017-11-02] MEDS ORDERED: Docusate 100 MG CAP PO SCH (23:45)
--- NOTE | 2017-11-03 05:08 | PRG ---
DATE OF SERVICE: 11/03/2017 SUBJECTIVE: The patient is postop day #4 status post fall from a ladder in which he sustained a righ t acetabular fracture. He has undergone open reduction and internal fixation of the same and has beg un working with physical and occupational therapy. The patient is tolerating a diet and his pain is controlled. Yesterday, it was noted by his family members that he had some bilateral lower extremity swelling and they were concerned for DVT was explained that it would be unlikely given the fact that he is on Lovenox and also has resumed his home aspirin, but due to their very expressive concern, we did order a venogram which was unremarkable for DVT. PHYSICAL EXAMINATION: VITAL SIGNS: Temperature is 97.9, heart rate 83, blood pressure 121/64, respirations 16, oxygen satu ration 96% on 2 liters via nasal cannula. GENERAL: The patient is resting comfortably, sitting beside the bed. He is awake, alert, and orient ed x3. HEENT: Unremarkable. LUNGS: Clear to auscultation with good inspiratory and expiratory effort. HEART: Regular rate and rhythm. ABDOMEN: Soft, flat, nontender with active bowel sounds. EXTREMITIES: Neurovascularly intact. His postop dressing is clean, dry, and intact. LABORATORY DATA: There are no labs or radiographs to review this morning. ASSESSMENT: 1. Status post fall from ladder. 2. Right acetabular fracture, status post open reduction and internal fixation. PLAN: Plan will be to continue supportive care, physical and occupational therapy and hopes the xavier ent will be discharged to inpatient rehab tomorrow. The evaluation and examination were done with Dr Monica Saldaña this morning.
[2017-11-03] MEDS: Acetaminophen 500 MG TAB PO SCH ×4 (05:11→23:47)
[2017-11-03] MEDS: traMADol HCl 50 MG TAB PO SCH ×4 (05:12→23:47)
[2017-11-03 05:25] LABS: #Eosinphils 0.1 thou/uL (0.0-0.7); #Lymphocytes 1.1 thou/uL (1.20-3.40); #Monocytes 0.7 thou/uL (0.11-0.59); #Neutrophils 4.3 thou/uL (1.40-6.50); %Basophils 0.3 % (0.0-1.0); %Eosinophils 2.2 % (0.0-10.0); %Lymphocytes 17.7 % (21.0-51.0); %Monocytes 11.1 % (0.0-10.0); %Neutrophils 68.6 % (42.0-75.0); Hemoglobin 7.2 g/dL (14.0-18.0); Mean Corpuscular HGB CONC 33.6 g/dL (32.0-36.0); Mean Corpuscular Hemoglobin 31.8 pg (27.0-31.0); Mean Corpuscular Volume 94.5 fL (78.0-98.0); Mean Platelet Volume 6.1 fL (7.4-10.4); Platelet Count 248 thou/uL (130-400); Red Blood Cell (RBC) Count 2.28 mill/uL (4.70-6.10); White Blood Cell (WBC) Count 6.3 thou/uL (4.8-10.8)
[2017-11-03 07:15] LABS: Anion Gap 10 mmol/L (10-20); BUN (Urea Nitrogen) 15 mg/dL (8.4-25.7); Calc. Creatinine Clearance 111 mL/min (70-130); Carbon Dioxide 26 mmol/L (23-31); Chloride 103 mmol/L (98-107); Estimated GFR-MDRD Greater than 90; Glucose 115 mg/dL (83-110); Magnesium 2.2 mg/dL (1.6-2.6); Phosphorus 3.2 mg/dL (2.3-4.7); Potassium 3.8 mmol/L (3.5-5.1); Sodium 135 mmol/L (136-145)
[2017-11-03] MEDS: CeleCOXIB 100 MG CAP PO SCH ×2 (08:56→20:48)
[2017-11-03] MEDS: Aspirin 81 mg Enteric Coated Tablet PO SCH ×2 (08:56→20:51)
[2017-11-03] MEDS: Ferrous Sulfate 325 MG TAB PO SCH ×2 (08:56→17:52)
[2017-11-03] MEDS: Ascorbic Acid 500 mg Chewable Tablet PO SCH ×2 (08:56→20:47)
[2017-11-03] MEDS: Docusate 100 MG CAP PO SCH (08:57)
[2017-11-03] MEDS: Dutasteride 0.5 MG CAP PO SCH (08:57)
[2017-11-03] MEDS: Magnesium Oxide 400 MG TAB PO SCH ×2 (08:57→20:48)
[2017-11-03] MEDS: Tamsulosin HCl 0.4 MG CAP PO SCH (08:57)
[2017-11-03] MEDS: Cyclobenzaprine 10 MG TAB PO SCH ×3 (08:57→20:48)
[2017-11-03] MEDS: Famotidine 20 MG TAB PO SCH ×2 (08:57→20:47)
[2017-11-03] MEDS: Senokot 8.6 MG TAB PO SCH (08:57)
[2017-11-03] MEDS ORDERED: Simethicone Chewable 80 MG TAB PO PRN (18:43)
[2017-11-03] MEDS ORDERED: Escitalopram Oxalate 10 mg Tablet PO SCH (18:45)
--- NOTE | 2017-11-04 03:42 | PRG ---
DATE OF SERVICE: 11/03/2017 SUBJECTIVE: The patient is status post fall from a ladder in which he sustained a right acetabular f racture. The patient is on the surgical floor, currently, awaiting placement to inpatient rehabilita tion, was noted this morning that he appeared somewhat pale and he complained of feeling weak again t his morning. Hemoglobin was noted to have drifted down to 7.2, so the decision was made to transfuse him with 1 unit of packed red blood cells. Otherwise, the patient's pain is controlled. He is tole rating a diet. PHYSICAL EXAMINATION: VITAL SIGNS: Temperature is 98.5, heart rate 86, blood pressure 130/62, respirations 18, oxygen satu ration 96% on room air. GENERAL: The patient is sitting in bed, resting comfortably. He is awake, alert, and oriented. HEENT: Unremarkable. LUNGS: Clear to auscultation with good inspiratory and expiratory effort. HEART: Regular rate and rhythm. ABDOMEN: Soft, flat, nontender with active bowel sounds. EXTREMITIES: Neurovascularly intact. His postop dressing is clean, dry, and intact. LABORATORY FINDINGS: White blood cell count is 6.3, hemoglobin 7.2, hematocrit 21.5, platelets 248. Sodium 135, potassium 3.8, chloride 103, CO2 26, BUN 15, creatinine 0.72, glucose 115, magnesium 2.2 , phosphorus 3.2. There are no radiographs to review this morning. ASSESSMENT AND PLAN: 1. Status post fall from ladder. 2. Status post open reduction internal fixation of a right acetabular fracture. 3. Acute blood loss anemia. PLAN: Will be to transfuse the patient 1 unit of packed red blood cells. We will continue supportiv e care, physical and occupational therapy and await placement decision. The patient for what we were told has been approved by both insurance and accepted by rehabilitation. So, tomorrow we will reche ck his hemoglobin, hematocrit and likely discharge him to rehabilitation at that time. The evaluatio n and examination were done with Dr. Saldaña this morning during rounds.
[2017-11-04 05:10] LABS: #Eosinphils 0.2 thou/uL (0.0-0.7); #Lymphocytes 1.3 thou/uL (1.20-3.40); #Monocytes 0.7 thou/uL (0.11-0.59); #Neutrophils 4.4 thou/uL (1.40-6.50); %Basophils 0.2 % (0.0-1.0); %Monocytes 10.5 % (0.0-10.0); %Neutrophils 67.2 % (42.0-75.0); Hemoglobin 8.3 g/dL (14.0-18.0); Mean Corpuscular HGB CONC 32.2 g/dL (32.0-36.0); Mean Corpuscular Hemoglobin 30.2 pg (27.0-31.0); Mean Corpuscular Volume 93.7 fL (78.0-98.0); Mean Platelet Volume 6.2 fL (7.4-10.4); Platelet Count 324 thou/uL (130-400); RBC Distribution Width 14.1 % (11.5-14.5); Red Blood Cell (RBC) Count 2.76 mill/uL (4.70-6.10); White Blood Cell (WBC) Count 6.6 thou/uL (4.8-10.8)
[2017-11-04] MEDS: Acetaminophen 500 MG TAB PO SCH ×2 (05:39→11:17)
[2017-11-04] MEDS: traMADol HCl 50 MG TAB PO SCH ×2 (05:40→11:18)
[2017-11-04 05:54] LABS: Anion Gap 13 mmol/L (10-20); BUN (Urea Nitrogen) 14 mg/dL (8.4-25.7); Calc. Creatinine Clearance 110 mL/min (70-130); Calcium 8.2 mg/dL (7.8-10.44); Carbon Dioxide 24 mmol/L (23-31); Chloride 103 mmol/L (98-107); Estimated GFR-MDRD Greater than 90; Glucose 106 mg/dL (83-110); Magnesium 2.2 mg/dL (1.6-2.6); Phosphorus 3.5 mg/dL (2.3-4.7); Potassium 3.9 mmol/L (3.5-5.1); Sodium 136 mmol/L (136-145)
[2017-11-04 08:06] VITALS: BP 130/72; TEMP 97.5
[2017-11-04] MEDS: Famotidine 20 MG TAB PO SCH (08:38)
[2017-11-04] MEDS: Dutasteride 0.5 MG CAP PO SCH (08:38)
[2017-11-04] MEDS: Magnesium Oxide 400 MG TAB PO SCH (08:38)
[2017-11-04] MEDS: Cyclobenzaprine 10 MG TAB PO SCH (08:39)
[2017-11-04] MEDS: CeleCOXIB 100 MG CAP PO SCH (08:39)
[2017-11-04] MEDS: Senokot 8.6 MG TAB PO SCH (08:39)
[2017-11-04] MEDS: Tamsulosin HCl 0.4 MG CAP PO SCH (08:39)
[2017-11-04] MEDS: Docusate 100 MG CAP PO SCH (08:39)
[2017-11-04] MEDS: Aspirin 81 mg Enteric Coated Tablet PO SCH (08:40)
[2017-11-04] MEDS: Ascorbic Acid 500 mg Chewable Tablet PO SCH (08:40)
[2017-11-04] MEDS: Ferrous Sulfate 325 MG TAB PO SCH (08:40)
[2017-11-04] MEDS ORDERED: Escitalopram Oxalate 10 mg Tablet PO SCH (09:00)
--- NOTE | 2017-11-04 18:23 | HP ---
PRIMARY CARE PHYSICIAN: Parveen Lowery MD ADMITTING PHYSICIAN: Trauma Service under Dr. Saldaña and Dr. Pritchett, Orthopedic Surgery CHIEF COMPLAINT: Fall. HISTORY OF PRESENT ILLNESS: The patient is status post open reduction internal fixation of right acetabular fracture. He has been made nonweightbearing on right lower extremity. He is currently pending possible placement in inpatient rehab today 11/04/2017, was consulted for mood management. The patient reports that he has never been treated for depression or anxiety in the family, however , multiple family members do have this disorder and had been treated for it. One of his second-degree relatives has done well on Lexapro reportedly. The patient states his mood has been declining. He is unclear on his outlook if he will return to his prior physical form. He had fallen off a barn trying to do self repair prior to this injury. He was otherwise healthy and ambulatory. The patient does not have any suicidal ideations, but just grim outlook, has become tearful at times, which is not characteristic of him. He is amicable to medications. He is sleeping okay for now. We will follow up on an outpatient basis with patient. FORMAL REVIEW OF SYSTEMS: No fevers, no chills, no chest pain, no palpitations , no cough, no wheeze, no abdomen pain, no constipation. Positive start and stop of urine stream. No hematuria reported. Positive constipation reported. Positive right hip pain. Incision site swelling reported. No bleeding reported. No lower extremity edema reported. No headache, vision changes reported. No numbness of lower extremity reported. PHYSICAL EXAMINATION: VITAL SIGNS: Today, temperature 97.8, pulse is 78, oxygen saturation 98% on a 1 liter of nasal cannula, blood pressure 161/65. LABORATORY WORK: White blood cell count of 6.6, hemoglobin of 8.3 following transfusion, MCV of 93.7, platelet count of 324,000. INR of 1.0. Sodium of 136 , potassium of 3.9, creatinine of 0.73, phosphorus of 3.5, calcium of 8.2. Venogram 2 days ago, no lower extremity DVTs present. PAST MEDICAL HISTORY: Benign prostatic hyperplasia, allergic reaction to bee sting on anaphylaxis. ALLERGIES: History of allergy to AMOXICILLIN and MORPHINE. MEDICATIONS: The patient takes finasteride 5 mg, tamsulosin 0.5 mg, Zyrtec for seasonal allergies 10 mg daily. PAST SURGICAL HISTORY: Repair of jaw, gallbladder removal, hernia repair and partial colon resection in 2010. SOCIAL HISTORY: The patient is a former smoker, quit in 1979. Does continue to participate in snuff at times. , sexually active. No illicit drug or alcohol reported. PHYSICAL EXAMINATION: GENERAL: The patient is alert and oriented, in no acute distress. HEENT: Normocephalic, atraumatic. Extraocular movements are intact. Nasal cannula in place. NECK: Supple. HEART: Regular rate and rhythm at time of exam. No murmurs auscultated. LUNGS: Clear to auscultation bilaterally. No rhonchi or rales. ABDOMEN: Soft, nontender. Positive bowel sounds throughout. Under percussion , somewhat bloated. EXTREMITIES: Right lower extremity with dressing intact to hip. Exam deferred regarding orthopedic limitations. NEUROLOGIC: The patient is alert and oriented x3, no focal deficits. Speech is normal. Affect is flat. Mood is somewhat labile. The patient is overtly depressed. ASSESSMENT AND PLAN: Right acetabular fracture, depression, benign prostatic hyperplasia, anemia of acute blood loss. Agree with inpatient rehabilitation. Disposition and management per Orthopedic Surgery. The patient is status post blood transfusion for anemia given his tobacco history and anemia likely cause for requirement of oxygen. No apparent pneumonia history or signs or symptoms on exam. The patient is continuing his prosthetic medications. Still has some difficulty getting to the side of bed to properly urinate. Did have to have a straight cath prior. The patient will be under the care of nursing staff with inpatient rehabilitation as he gets more mobility. I do not foresee his need for Spencer catheterization. He does not have one in place currently. For depression, we will start the patient on low dose Lexapro and we will consider increasing when he leaves inpatient rehabilitation in the next several weeks. We will follow up on an outpatient basis. We will continue to follow while he is here inpatient. PATY
--- NOTE | 2017-11-05 11:34 | EKG ---
Test Reason : Blood Pressure : / mmHG Vent. Rate : 084 BPM Atrial Rate : 084 BPM P-R Int : 232 ms QRS Dur : 146 ms QT Int : 446 ms P-R-T Axes : 074 017 053 degrees QTc Int : 527 ms Sinus rhythm with 1st degree A-V block Right bundle branch block Abnormal ECG Confirmed by JOHNNY BRADLEY, NALINI ([id number]), editorial director CLIFFORD MARQUIS ([id number]) on 11/05/2017 11:33:52 AM Referred By: Confirmed By:NALINI TURNER MD
== END 2017-11-04 11:50 | DRG 516 ==
LOC: ERS 11:02 → SURG A 14:34
PROVIDERS: ADMIT Surgery; ATTEND Surgery
PROC: 0QS404Z Reposition Right Acetabulum with Internal Fixation Device, Open Approach (ICD-10-PCS; principal; 2017-10-29)
PROC: 30233N1 Transfusion of Nonautologous Red Blood Cells into Peripheral Vein, Percutaneous Approach (ICD-10-PCS; 2017-10-31)
DX: S32.431A Displaced fracture of anterior column [iliopubic] of right acetabulum, initial encounter for closed fracture (principal); D62 Acute posthemorrhagic anemia; S32.441A Displaced fracture of posterior column [ilioischial] of right acetabulum, initial encounter for closed fracture; W11.XXXA Fall on and from ladder, initial encounter; Y92.9 Unspecified place or not applicable; E83.39 Other disorders of phosphorus metabolism; F32.9 Major depressive disorder, single episode, unspecified; N40.0 Benign prostatic hyperplasia without lower urinary tract symptoms; Z79.82 Long term (current) use of aspirin; Z88.5 Allergy status to narcotic agent; Z88.0 Allergy status to penicillin; Z87.891 Personal history of nicotine dependence
CPT/HCPCS: 36415; 36416; 36430; 51703; 70450; 71260; 72125; 72170; 72190; 74177; 76001; 80048; 80053; 81003; 83690; 83735; 84100; 85025; 85610; 85730; 86850; 86900; 86901; 90471; 90715; 93005; 93970; 94640; 96374; 96375; 96376; C1713; G0390; G8978-GP-CM; G8979-GP-CK; G8987-GO-CL; G8988-GO-CI; J0131; J1650; J1885; J1956; J2001; J2405; J2704; J3010; J3490; J7050; J7620; P9016; P9045; S0028

== ENCOUNTER 2018-01-12 11:25 | Outpatient (CLI) | payer MEDICARE ==
[2018-01-12 13:12] LABS: Bilirubin Negative (Negative); Blood, Urine Negative (Negative); Clarity CLEAR (Clear); Glucose, Urine (Dipstick) Negative (Negative); Leukocyte Negative (Negative); Nitrite Negative (Negative); Protein, Urine (Dipstick) Negative (Neg-Trace); Urobilinogen 0.2 mg/dL (0.2-1.0)
[2018-01-12 13:14] LABS: Hemoglobin 14.3 g/dL (14.0-18.0); Mean Corpuscular HGB CONC 31.4 g/dL (32.0-36.0); Mean Corpuscular Hemoglobin 28.9 pg (27.0-31.0); Mean Corpuscular Volume 91.8 fL (78.0-98.0); Mean Platelet Volume 6.6 fL (7.4-10.4); Platelet Count 334 thou/uL (130-400); RBC Distribution Width 13.6 % (11.5-14.5); Red Blood Cell (RBC) Count 4.96 mill/uL (4.70-6.10)
[2018-01-12 13:18] LABS: Bacteria/HPF None Seen HPF (None Seen); Hyaline Casts/LPF 0-3 HYALINE CAST LPF (0-3 Hyaline); RBC/HPF 0-3 HPF (0-3); Squamous Epithelial None Seen HPF (0-3); WBC/HPF None Seen HPF (0-3)
[2018-01-12 13:25] LABS: Prothrombin Time 12.9 SEC (12.0-14.7)
[2018-01-12 13:32] LABS: Anion Gap 12 mmol/L (10-20); BUN (Urea Nitrogen) 8 mg/dL (8.4-25.7); Calc. Creatinine Clearance 0 mL/min (70-130); Calcium 9.8 mg/dL (7.8-10.44); Carbon Dioxide 29 mmol/L (23-31); Chloride 99 mmol/L (98-107); Estimated GFR-MDRD 81; Glucose 109 mg/dL (83-110); Potassium 4.2 mmol/L (3.5-5.1); Sodium 136 mmol/L (136-145)
== END 2018-01-12 11:26 | disposition home or self-care (01) ==
LOC: LABBT 11:25
PROVIDERS: ATTEND Orthopaedic Surgery
DX: Z01.812 Encounter for preprocedural laboratory examination (principal); S32.401A Unspecified fracture of right acetabulum, initial encounter for closed fracture
CPT/HCPCS: 80048; 81001; 85027; 85610; 85730; 86850; 86900; 86901; 87081; 87086

== ENCOUNTER 2018-01-12 13:15 | Inpatient (IN) | payer MEDICARE ==
[2018-01-12 12:05] VITALS: BMI 25.1
[2018-01-16] MEDS ORDERED: CEFAZOLIN/Water 2 GM/20 ML SYRINGE ONE (06:28)
[2018-01-16] MEDS ORDERED: Midazolam HCl 2 mg/2 ml Vial ONE (06:35)
[2018-01-16] MEDS ORDERED: Fentanyl 100 MCG/2 ML VIAL ONE ×2 (06:35→07:56)
[2018-01-16] MEDS ORDERED: diphenhydrAMINE 50 MG/ML VIAL IVP PRN (07:15)
[2018-01-16] MEDS ORDERED: Naloxone HCl 0.4 mg/ml Vial IV PRN (07:15)
[2018-01-16] MEDS ORDERED: fentaNYL Citrate/PF 1,250 MCG, Bupivacaine 25 ML in Sodium Chloride 0.9% 250 ML 200 ML EPIDURAL SCH (07:15)
[2018-01-16] MEDS ORDERED: HYDROcodone/Acetaminophen 5/325 mg Tablet PO PRN ×2 (07:15)
[2018-01-16] MEDS ORDERED: Zolpidem Tartrate 5 MG TAB PO PRN (07:15)
[2018-01-16] MEDS ORDERED: Promethazine HCl 25 MG SUPP PR PRN (07:15)
[2018-01-16] MEDS ORDERED: diphenhydrAMINE 50 MG/ML VIAL IM PRN (07:15)
[2018-01-16] MEDS ORDERED: Naloxone HCl 0.4 mg/ml Vial IVP PRN (07:15)
[2018-01-16] MEDS ORDERED: Ketorolac Tromethamine 30 MG/ML VIAL IVP PRN (07:15)
[2018-01-16] MEDS ORDERED: Hydrocerin (Eucerin) Cream 120 gm Jar TOP PRN (07:15)
[2018-01-16] MEDS ORDERED: Promethazine HCl 25 MG/ML VIAL IM PRN ×2 (07:15→11:05)
[2018-01-16] MEDS ORDERED: diphenhydrAMINE 25 MG CAP PO PRN (07:15)
[2018-01-16] MEDS ORDERED: Bupivacaine 0.25% HCL 30 ML VIAL ONE (07:18)
[2018-01-16] MEDS ORDERED: Propofol 1,000 MG/100 ML VIAL IV ONE (07:18)
[2018-01-16] MEDS ORDERED: Famotidine/PF 20 mg/2ml Vial ONE ×2 (07:31→08:10)
[2018-01-16] MEDS ORDERED: Tobramycin Sulfate 1.2 GM VIAL ONE (08:13)
[2018-01-16] MEDS ORDERED: Communication Order-Pharmacy FS SCH (10:00)
[2018-01-16] MEDS ORDERED: PROPOFOL 20 ML ONE (10:04)
[2018-01-16] MEDS ORDERED: Glycopyrrolate 0.2 MG/ML 5 ML SYRINGE ONE (10:05)
[2018-01-16] MEDS ORDERED: Ondansetron HCl/PF 4 MG/2 ML Vial ONE (10:05)
[2018-01-16] MEDS ORDERED: ePHEDrine/0.9% NaCl/PF SYRINGE 50 mg/10 ml ONE ×2 (10:05→10:28)
[2018-01-16] MEDS ORDERED: PHENYLEPHRINE-NS 100 MCG/ML 10 ML SYRINGE ONE (10:05)
[2018-01-16] MEDS ORDERED: Lidocaine 1% PF 5 ML VIAL ONE (10:05)
[2018-01-16] MEDS ORDERED: PROPOFOL 200 MG/20 ML VIAL ONE (10:05)
[2018-01-16] MEDS ORDERED: Dexamethasone 20 MG/5 ML VIAL ONE (10:05)
[2018-01-16] MEDS ORDERED: Ketorolac Tromethamine 30 MG/ML VIAL ONE (10:05)
--- NOTE | 2018-01-16 10:14 | RAD ---
AP PELVIS RADIOGRAPH: DATE: 01/16/2018. HISTORY: Intraoperative placement of a right total hip prosthesis. COMPARISON: 10/28/2017. FINDINGS: There has been interval placement of a right total hip prosthesis with prominent acetabular component with multiple screws and malleable plate overlying the right hip. Remote fractures involving the ri ght superior and inferior pub rami are again seen. The patient is rotated which limits evaluation of the left aspect of the pelvis. Spencer catheter is noted in place. Subcutaneous emphysema is seen ab out the right hip. IMPRESSION: Postsurgical changes right hip. POS: RAQUEL
[2018-01-16] MEDS ORDERED: Promethazine HCl 25 MG/ML VIAL SLOW IVP PRN (11:05)
[2018-01-16 11:37] LABS: Hemoglobin 9.5 g/dL (14.0-18.0)
--- NOTE | 2018-01-16 12:09 | RAD ---
AP PELVIS: HISTORY: Total hip arthroplasty. FINDINGS/IMPRESSION: There are recent postop changes of right total hip arthroplasty in good position and alignment. Ther e are degenerative changes in the lower lumbar spine. POS: LIZ
--- NOTE | 2018-01-16 12:10 | RAD ---
RIGHT HIP 2 VIEWS: HISTORY: Right hip arthroplasty. FINDINGS/IMPRESSION: There are recent postop changes of a total hip arthroplasty in good position and alignment. Surgical doug are present. Soft tissue air is seen. POS: LIZ
--- NOTE | 2018-01-16 12:38 | OP ---
DATE OF SURGERY: 01/16/2018. 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 POSTOPERATIVE DIAGNOSIS: Right hip post-traumatic arthritis status post both column acetabular fract ure. SURGICAL PROCEDURES: 1. Right total hip arthroplasty. 2. Right hardware removal acetabulum. ANESTHESIA: General. SURGEON: Delonte Kerr M.D. DIRECTOR OF HOTEL OPERATIONS: Dr. Pritchett. IMPLANTS: DePuy system was used with a size 8 [place] stem, a size 68 [place] cup, a [place] 62 x 3 6 10-degree offset liner, a +1.5 femoral head and two 6.5 mm central acetabular cup screws and three 5.0 mm peripheral screws. BLOOD LOSS: 550 mL. SPECIMEN: Explanted screws x2 discarded. COMPLICATIONS: None. DRAINS: None. OUTCOME: Stable total hip arthroplasty with nondenominational of leg length. INDICATIONS: Patient is a pleasant 72-year-old gentleman who is status post both column acetabular f racture. This was treated with a posterior stabilization of the posterior column and following this, the anterior column was felt to be relatively well aligned and given the patient's age and comorbidi ties, opted to proceed with a nonsurgical management of the anterior column. Unfortunately, the xavier ent has gone on to displace the anterior column and developed posttraumatic arthritis of the hip that is now interfering with activities of normal daily living. After discussion with patient including risks and benefits, we decided to proceed with total hip arthroplasty. PROCEDURE IN DETAIL: After the induction of general anesthesia, the patient was positioned in a left lateral decubitus position and then a sterile prep and drape was performed of the right lower extrem ity. Next, following the previous skin incision, the skin was incised and then dissection carried do wn sharply to the underlying fascia tutu and tensor fascia. This was incised in line with the skin i ncision and reflected anteriorly and posteriorly with a Charnley retractor applied to the wound. The re was found to be extensive scarring posteriorly where the short external rotators had been formally . Using a combination of sharp and electrocautery dissection, the scar along the posterior aspect of the proximal femur was excised until such point that the capsule was entered and the femoral head co uld be identified. A retractor was placed under the abductors and draped around the anterior portion of the acetabulum and then a second retractor was placed inferior to the head and neck. Further dis section was performed until the head could be freed up to the point where the hip could be dislocated . Once dislocated, an oscillating saw was used to make a femoral neck cut and removed the head. Att ention was then placed to the acetabulum. The anterior and posterior columns both had healed, but wi th some distraction and certainly some deformity present. There was felt to be adequate bone superio rly and posteriorly as well as an anterior wall that was somewhat malpositioned but with good bone st ock. As such, reaming was started at approximately size 52 and then continued up by 2 mm increments up to a size 66. At this point, there was good rim fit circumferentially around the acetabulum, alth ough still with some bony irregularity at the base of the acetabulum. It should be noted that this w as essentially a protrusio type acetabulum as a result of the fracture. At this point, the femoral h ead was morcellized using a reamer and then the bone was packed into the base of the acetabulum and t hen a reamer used in reverse to pack the bone in place. At completion of this, pulse irrigation was used to thoroughly irrigate the hip and then the size 68 [place] cup was introduced. There was foun d to be good rim fit once it was fully driven in place. Next, a total of 5 screws were introduced th rough the cup and into the acetabular bone. This with two 6.5 screws in the cup itself and then thre e 5 mm rim screws. This resulted in excellent stability of the cup within the acetabulum. Next, a 1 0 degree offset liner was introduced and placed in the cup. Attention was then placed at the proxima l femur. It should be noted that before placement of the cup, two of the screws could be from the op en reduction and internal fixation of the acetabulum could be visualized within the cup as the reamin g was performed. Once the screws were clearly visualized, the two screws were then removed. One was an interfragmentary screw just at the superior dome of the acetabulum. This removed with relative e ase. The second screw was going through the posterior plate again removed with relative ease. This in addition to placement of the cup proceeded femoral stem placement. Again, once the femoral neck h ad been cut, an initial box cutting chisel was used to obtain a starting point for the broach. The T -handle awl was passed down the canal and then a lateralizing reamer passed down the canal. Progress kilo T handle awls were then passed up until a size 8 gave excellent cortical fit. Next, broaching wa s started at size 4 and continued up to size 8, which gave good fit and fill. A trial reduction was then performed on the size 8 broach and then an AP pelvis x-ray was obtained. This x-ray demonstrate d that we had restored leg lengths with perhaps just a slight increase in offset. As such, the trial broach was removed from the proximal femur. The proximal femur further irrigated with Pulsavac and then the final size 8 stem introduced. Once fully introduced, a +1.5 head was attached to the stem a nd then the hip was reduced. The hip was found to have excellent stability in the 90/90 position, in ternal rotation up to 60 degrees was required before any subluxation was noted. Next, attention was placed to wound closure that really was not a capsule or short external rotator to repair. As such, the abductors were loosely reapproximated followed by the tensor fascia and fascia tutu. Next, Scarp a's fascia was closed with 0 Vicryl followed by 2-0 Vicryl subcutaneously, and doug for the skin. A Xeroform gauze tape dressing was applied to the thigh and then patient was transferred to recovery room in stable condition. There were no complications and patient tolerated the procedure well.
[2018-01-16] MEDS ORDERED: Prevnar 13-Val Conj/PF 0.5 ML SYRINGE IM ONE (14:30)
[2018-01-16] MEDS: CEFAZOLIN/Water 2 GM/20 ML SYRINGE SLOW IVP SCH (16:20)
[2018-01-16] MEDS: Aspirin 81 mg Enteric Coated Tablet PO SCH (20:56)
[2018-01-16] MEDS: traMADol HCl 50 MG TAB PO PRN (20:59)
[2018-01-17] MEDS: CEFAZOLIN/Water 2 GM/20 ML SYRINGE SLOW IVP SCH ×4 (01:15→23:54)
[2018-01-17] MEDS: traMADol HCl 50 MG TAB PO PRN ×4 (04:58→23:54)
[2018-01-17 06:21] LABS: #Lymphocytes 1.7 thou/uL (1.20-3.40); #Monocytes 0.9 thou/uL (0.11-0.59); #Neutrophils 8.1 thou/uL (1.40-6.50); %Eosinophils 0.2 % (0.0-10.0); %Lymphocytes 15.6 % (21.0-51.0); %Monocytes 8.2 % (0.0-10.0); %Neutrophils 75.9 % (42.0-75.0); Hemoglobin 8.6 g/dL (14.0-18.0); Mean Corpuscular HGB CONC 32.2 g/dL (32.0-36.0); Mean Corpuscular Hemoglobin 29.3 pg (27.0-31.0); Mean Corpuscular Volume 91.1 fL (78.0-98.0); Mean Platelet Volume 7.1 fL (7.4-10.4); Platelet Count 229 thou/uL (130-400); RBC Distribution Width 13.5 % (11.5-14.5); Red Blood Cell (RBC) Count 2.94 mill/uL (4.70-6.10); White Blood Cell (WBC) Count 10.7 thou/uL (4.8-10.8)
[2018-01-17] MEDS: Aspirin 81 mg Enteric Coated Tablet PO SCH ×2 (08:14→20:43)
[2018-01-17] MEDS: Ondansetron HCl/PF 4 MG/2 ML Vial IVP PRN (21:14)
[2018-01-18] MEDS: Milk Of Magnesia 30 ML UDCUP PO PRN ×2 (06:42→14:50)
[2018-01-18] MEDS: Aspirin 81 mg Enteric Coated Tablet PO SCH ×2 (09:50→20:27)
[2018-01-18] MEDS: CEFAZOLIN/Water 2 GM/20 ML SYRINGE SLOW IVP SCH ×2 (09:50→16:43)
[2018-01-18] MEDS: traMADol HCl 50 MG TAB PO PRN ×3 (11:06→23:07)
[2018-01-18] MEDS: Ondansetron HCl/PF 4 MG/2 ML Vial IVP PRN (16:49)
[2018-01-18] MEDS ORDERED: Escitalopram Oxalate 10 mg Tablet PO SCH (17:15)
[2018-01-18] MEDS ORDERED: Tamsulosin HCl 0.4 MG CAP PO SCH (17:15)
[2018-01-18] MEDS ORDERED: Dutasteride 0.5 MG CAP PO SCH (17:15)
[2018-01-19 05:57] LABS: Hemoglobin 8.2 g/dL (14.0-18.0)
[2018-01-19] MEDS: Aspirin 81 mg Enteric Coated Tablet PO SCH ×2 (07:48→20:02)
[2018-01-19] MEDS: traMADol HCl 50 MG TAB PO PRN ×2 (07:49→20:02)
[2018-01-19] MEDS: Tamsulosin HCl 0.4 MG CAP PO SCH (07:49)
[2018-01-19] MEDS: Escitalopram Oxalate 10 mg Tablet PO SCH (07:50)
[2018-01-19] MEDS ORDERED: CeleCOXIB 100 MG CAP PO PRN (08:32)
[2018-01-19] MEDS ORDERED: Dutasteride 0.5 MG CAP PO SCH (09:00)
[2018-01-19] MEDS: Ondansetron HCl/PF 4 MG/2 ML Vial IVP PRN (20:56)
[2018-01-20] MEDS: Ondansetron HCl/PF 4 MG/2 ML Vial IVP PRN ×2 (03:32→09:45)
[2018-01-20] MEDS: traMADol HCl 50 MG TAB PO PRN ×3 (03:33→21:58)
[2018-01-20] MEDS: Dutasteride 0.5 MG CAP PO SCH (09:44)
[2018-01-20] MEDS: Aspirin 81 mg Enteric Coated Tablet PO SCH ×2 (09:44→20:55)
[2018-01-20] MEDS: Tamsulosin HCl 0.4 MG CAP PO SCH (09:44)
[2018-01-20] MEDS: Escitalopram Oxalate 10 mg Tablet PO SCH (09:44)
[2018-01-20] MEDS ORDERED: Ondansetron ODT 4 MG TAB PO PRN (14:43)
[2018-01-21 07:34] VITALS: BP 130/63; TEMP 98
[2018-01-21] MEDS: Escitalopram Oxalate 10 mg Tablet PO SCH (07:59)
[2018-01-21] MEDS: Tamsulosin HCl 0.4 MG CAP PO SCH (07:59)
[2018-01-21] MEDS: traMADol HCl 50 MG TAB PO PRN (08:00)
[2018-01-21] MEDS: Aspirin 81 mg Enteric Coated Tablet PO SCH (08:01)
[2018-01-21] MEDS: Dutasteride 0.5 MG CAP PO SCH (08:36)
== END 2018-01-21 12:07 | disposition home or self-care (01) | DRG 470 ==
LOC: SURG A 01-16 05:54 → SURG B 01-16 13:22
PROVIDERS: ADMIT Orthopaedic Surgery; ATTEND Orthopaedic Surgery
PROC: 0SRC0J9 Replacement of Right Knee Joint with Synthetic Substitute, Cemented, Open Approach (ICD-10-PCS; principal; 2018-01-16)
PROC: 0QP404Z Removal of Internal Fixation Device from Right Acetabulum, Open Approach (ICD-10-PCS; 2018-01-16)
DX: M17.31 Unilateral post-traumatic osteoarthritis, right knee (principal); S32.401S Unspecified fracture of right acetabulum, sequela; N40.0 Benign prostatic hyperplasia without lower urinary tract symptoms; W11.XXXS Fall on and from ladder, sequela; Z87.891 Personal history of nicotine dependence; Z79.899 Other long term (current) drug therapy; Z79.82 Long term (current) use of aspirin; Z88.5 Allergy status to narcotic agent; Z88.0 Allergy status to penicillin
CPT/HCPCS: 36415; 72170; 85014; 85018; 85025; 90471; 90670; C1713; C1776; G0009; G8978-GP-CL; G8979-GP-CI; J0131; J1100; J1200; J1885; J2001; J2250; J2405; J2704; J3010; J3260; J3490; J7050; Q0162; S0020; S0028

== ENCOUNTER 2018-06-20 21:33 | Emergency (ER) | payer MEDICARE ==
--- NOTE | 2018-06-20 22:14 | RAD ---
LEFT WRIST THREE VIEWS: 06/20/18 INDICATION: Fall with left hand pain. FINDINGS: There is dorsal fracture dislocation of the distal radius. The wrist carpus is displaced dorsally one full shaft width. There is a comminuted fracture involving the radial styloid process as well as the dorsal rim of the distal radius. There is displaced ulnar styloid base fracture, also displaced dors ally one full shaft width. No additional fracture is evident. IMPRESSION: Fracture dislocation of the left wrist. POS: LIZ
--- NOTE | 2018-06-20 22:27 | RAD ---
LEFT KNEE FOUR VIEWS: 06/20/18 INDICATION: Left knee pain after fall. COMPARISON: None. FINDINGS: No acute fracture or subluxation is evident. Soft tissues are normal appearing. IMPRESSION: No acute osseous abnormality. POS: LIZ
[2018-06-20] MEDS ORDERED: Fentanyl 100 MCG/2 ML VIAL ONE ×2 (22:28→23:45)
[2018-06-20] MEDS ORDERED: PROPOFOL 20 ML ONE (23:07)
--- NOTE | 2018-06-20 23:42 | RAD ---
TWO VIEWS OF THE LEFT WRIST: 06/20/18 INDICATION: Post reduction. COMPARISON: Prior exam performed at 10:16 p.m. FINDINGS: There is improved alignment of the fracture dislocation. There is soft tissue swelling surrounding th e left wrist. There is a comminuted fracture involving the distal radius with an intra-articular frac ture component involving the lunate fossa as well as the radial styloid. There is improved alignment of the ulnar styloid base fracture. IMPRESSION: Post reduction images of the left radius with improved alignment of the fractures. POS: LIZ
[2018-06-20] MEDS ORDERED: Bacitracin Zinc Ointment 30 gm TUBE ONE (23:48)
[2018-06-20] MEDS ORDERED: Bacitracin Zinc 1 Packet ONE (23:49)
== END 2018-06-21 00:40 | disposition home or self-care (01) ==
LOC: SCSER 21:33
DX: S52.512A Displaced fracture of left radial styloid process, initial encounter for closed fracture (principal); S52.612A Displaced fracture of left ulna styloid process, initial encounter for closed fracture; S61.412A Laceration without foreign body of left hand, initial encounter; M25.562 Pain in left knee; Z71.6 Tobacco abuse counseling; N40.0 Benign prostatic hyperplasia without lower urinary tract symptoms; F17.220 Nicotine dependence, chewing tobacco, uncomplicated; Z79.899 Other long term (current) drug therapy; Z79.82 Long term (current) use of aspirin; W18.30XA Fall on same level, unspecified, initial encounter
CPT/HCPCS: 12002; 25505; 25675; 96361; 96374; 96376; 99152; 99406; J2704; J3010

== ENCOUNTER 2018-06-24 08:39 | Day surgery (SDC) | payer MEDICARE ==
[2018-06-23 16:32] VITALS: BMI 25.4
[2018-06-24] MEDS ORDERED: Midazolam HCl 2 mg/2 ml Vial ONE (09:52)
[2018-06-24] MEDS ORDERED: Fentanyl 100 MCG/2 ML VIAL ONE (09:52)
[2018-06-24] MEDS ORDERED: HYDROcodone/Acetaminophen 10/325 mg Tablet PO PRN ×2 (10:07)
[2018-06-24] MEDS ORDERED: Ropivacaine 0.2% 550 ML 550 ML NERVE BLCK SCH (10:07)
[2018-06-24] MEDS ORDERED: Ketorolac Tromethamine 30 MG/ML VIAL IVP PRN (10:07)
[2018-06-24] MEDS ORDERED: traMADol HCl 50 MG TAB PO PRN ×2 (10:07)
[2018-06-24] MEDS ORDERED: Promethazine HCl 25 MG/ML VIAL IM PRN (10:07)
[2018-06-24] MEDS ORDERED: Ondansetron PF 4 MG/2 ML Vial IVP PRN (10:07)
[2018-06-24] MEDS ORDERED: Zolpidem Tartrate 5 MG TAB PO PRN (10:07)
[2018-06-24] MEDS ORDERED: Fentanyl 100 MCG/2 ML VIAL IV PRN (10:07)
[2018-06-24] MEDS ORDERED: ceFAZolin Sodium 2 GM/100 ML BAG ONE (10:18)
[2018-06-24] MEDS ORDERED: Clindamycin/D5W 600 mg/50 ml Premix Bag ONE (11:02)
[2018-06-24] MEDS ORDERED: Propofol 500 MG/50 ML VIAL ONE (11:23)
--- NOTE | 2018-06-24 12:33 | RAD ---
EXAM: LEFT WRIST THREE VIEWS: History: ORIF left wrist. Comparison: 06-20-18 FINDINGS: Internal fixation screw has been placed stabilizing the slightly comminuted distal radial fracture. N ondisplaced ulnar styloid process fracture. Abnormal widening of the scapholunate space suggesting th e possibility of scapholunate ligament injury. IMPRESSION: Internal fixation screw stabilizing the distal radius with marked improvement in the position and ali gnment of the distal radial fracture. Ulnar styloid process fracture. Abnormal widening of the scapho lunate space. POS: TPC
[2018-06-24] MEDS ORDERED: rOPINIRole HCl 0.25 MG TAB PO SCH (13:00)
[2018-06-24] MEDS ORDERED: Ropivacaine 0.2% HCl/PF (40 MG/20 ML VIAL) ONE (13:20)
[2018-06-24] MEDS ORDERED: Ropivacaine 0.5% HCl/PF (150 MG/30 ML VIAL) ONE (13:20)
[2018-06-24] MEDS ORDERED: PROPOFOL 200 MG/20 ML VIAL ONE (14:57)
--- NOTE | 2018-06-25 01:19 | OP ---
DATE OF PROCEDURE: 06/24/2018 PREOPERATIVE DIAGNOSES: 1. Left radial styloid fracture. 2. Left ulnar styloid fracture. POSTOPERATIVE DIAGNOSES: 1. Left radial styloid fracture. 2. Left ulnar styloid fracture. 3. Left wrist scapholunate diastasis. PROCEDURES PERFORMED: 1. Open reduction and internal fixation of left radial styloid. 2. Splint stabilization for left scapholunate diastasis. ANESTHESIA: General. LIQUOR TESTER: Ladi Larry PA-C TOURNIQUET TIME: 23 minutes at 250 mmHg. IMPLANTS: Synthes 2.7 mm screw. COMPLICATIONS: None. DRAINS: None. SPECIMEN: None. INDICATIONS FOR PROCEDURE: Mr. Weston is a pleasant 72-year-old gentleman, who sustained a ground level fall, landing on his outstretched left hand. He had a fracture dislocation of the wrist. This was reduced in the emergency room initially and then he presented to my office, where he was found to have a still mildly displaced radial styloid fracture with centrally minimally to nondisplaced ulnar styloid fracture. After discussion with the patient including the risks and benefits, we decided to proceed with stabilization of this fracture. DESCRIPTION OF PROCEDURE: The patient was brought to the operating room and a time-out performed followed by induction of general anesthesia. The patient was positioned supine on the OR table and then, a sterile prep and drape was performed of the left upper extremity. Next, a small incision was made overlying the tip of the radial styloid. After skin was sharply incised, dissection was carried down bluntly, taking care to spare branches of the radial nerve. Next, a reduction was performed of the radial styloid and then a drill passed from the tip of the styloid across the fracture into the ulnar side of the distal radial metaphysis. A 2.7 mm screw was then passed through this drill hole, gaining excellent compression and anatomic reduction of the radial styloid. The ulnar styloid was still minimally, if not minimally to nondisplaced. At the completion of stabilizing at the radial styloid, good AP, oblique, and lateral x-rays were obtained with C-arm and at this point, a slight diastasis was seen at the scapholunate joint. Looking back, this diastasis cannot be visualized on his injury films or post reduction films in the emergency room. It was opted not to proceed with any further surgery at this time. The patient was placed in a thumb spica splint after the wound was closed with interrupted nylon sutures and then transferred to recovery room in stable condition. I will be speaking with our hand specialist regarding possible further intervention for the diastasis. Job ID: [id number]
== END 2018-06-24 14:10 | disposition home or self-care (01) ==
LOC: SDC 08:39
PROVIDERS: ATTEND Orthopaedic Surgery
PROC: 0PSJ04Z Reposition Left Radius with Internal Fixation Device, Open Approach (ICD-10-PCS; principal; 2018-06-24)
DX: S52.512A Displaced fracture of left radial styloid process, initial encounter for closed fracture (principal); S52.615A Nondisplaced fracture of left ulna styloid process, initial encounter for closed fracture; S63.035A Dislocation of midcarpal joint of left wrist, initial encounter; M23.92 Unspecified internal derangement of left knee; N40.0 Benign prostatic hyperplasia without lower urinary tract symptoms; F17.290 Nicotine dependence, other tobacco product, uncomplicated; Z79.82 Long term (current) use of aspirin; Z79.899 Other long term (current) drug therapy; Z88.0 Allergy status to penicillin; Z88.5 Allergy status to narcotic agent; Z98.890 Other specified postprocedural states; W18.30XA Fall on same level, unspecified, initial encounter; Y99.0 Civilian activity done for income or pay
CPT/HCPCS: 25607; 73110; 76000; A4306; C1713; J0690; J2250; J2704; J2795; J3010; J3490

== ENCOUNTER 2018-07-03 10:39 | Outpatient (CLI) | payer MEDICARE ==
--- NOTE | 2018-07-03 14:33 | MRI ---
MRI LEFT KNEE WITHOUT CONTRAST: INDICATIONS: History of left knee pain after the left knee gave out on him weeks ago. The patient had a fall rela carmine to this and is having persistent left knee pain. COMPARISON: None. FINDINGS: There is a full-thickness radial tear involving the central posterior horn of the medial meniscus wit h partial medial extrusion. There is also a horizontally oriented tear involving the body and comb machine operator ior junction of the medial meniscus. There is also a horizontally oriented tear involving the anteri or horn, body, and posterior horn of the lateral meniscus. The ACL, PCL, MCL, and LCL are intact. The extensor mechanism is intact. There is some mild to moderate chondrosis involving the medial femoral tibial joint compartment, with a small focal full-thickness defect involving the medial femoral condyle, measuring 9 mm in its grea test AP dimension and approximately 1.4 cm in its greatest AP dimension. There is mild chondrosis in volving the medial patellar facet and median patellar ridge. There is a small Rudolph's cyst. There i s fluid overlying the superficial fascia of the medial gastrocnemius, which may reflect partial ruptu re of the Rudolph's cyst. IMPRESSION: 1. Mild osteoarthrosis of the left knee, predominantly affecting the medial femorotibial and patello femoral compartment. 2. Medial and lateral meniscal tears. 3. Findings suspicious for partial rupture of a Rudolph's cyst with fluid extending along the posterio r aspect of the proximal foreleg. POS: [facility]
== END 2018-07-03 10:40 | disposition home or self-care (01) ==
LOC: SCSMRI 10:39
PROVIDERS: ATTEND Family Medicine
DX: M23.92 Unspecified internal derangement of left knee (principal); M17.12 Unilateral primary osteoarthritis, left knee; S83.242A Other tear of medial meniscus, current injury, left knee, initial encounter; S83.282A Other tear of lateral meniscus, current injury, left knee, initial encounter

== ENCOUNTER 2019-01-04 10:17 | Day surgery (SDC) | payer MEDICARE ==
[2019-01-01 11:28] VITALS: BMI 28.2
[2019-01-04] MEDS ORDERED: Fentanyl 100 MCG/2 ML VIAL ONE (12:24)
[2019-01-04] MEDS ORDERED: Clindamycin/D5W 900 mg/50 ml Premix Bag ONE (12:31)
[2019-01-04] MEDS ORDERED: Bupivacaine HCl 0.5%/Epinephrine 1:200,000/PF 30 ml Vial ONE (13:05)
--- NOTE | 2019-01-04 14:38 | OP ---
DATE OF PROCEDURE: 01/04/2019 OPERATION PERFORMED: Left knee arthroscopic medial and lateral meniscus debridement with synovectomy. PREOPERATIVE DIAGNOSIS: Left knee medial and lateral meniscus tears. POSTOPERATIVE DIAGNOSIS: Left knee medial and lateral meniscus tears. COMPLICATIONS: None. ESTIMATED BLOOD LOSS: Minimal. ANESTHESIA: General plus local. INDICATIONS: Mr. Weston is a 73-year-old male, who has developed sharp pain in his knee as well as catching and locking. He has fallen several times because of his knee. He has felt improved with injection. He has been found to have meniscus tears on MRI with minimal arthritis. He has been indicated for knee arthroscopic surgery to debride the meniscus back to a stable base, so that he has no further mechanical symptoms. Risks to include progression of arthritis, chronic pain, and others. DESCRIPTION OF PROCEDURE: Mr. Weston was identified in the preoperative holding area. His correct extremity was marked. He was carried to the operating room. He was positioned supine. General anesthesia was induced. A multidisciplinary time-out was performed. The left lower extremity was prepped and draped in sterile fashion. We began the procedure with insertion of our arthroscope through an anterior lateral portal. We then inserted a needle into the anterior medial portal and did a direct visualization of this needle. This allowed us to make an anterior medial portal. At this point, we inserted our shaver. We performed a synovectomy of the anterior compartment of the knee as well as around the patellofemoral joint. The patient did have significant synovitis. We then used our cautery device to obtain hemostasis. Next, we examined the ACL and PCL, which were intact, although he did have some enlargement and fraying of fibers. The medial and lateral gutters were examined without loose bodies. We then entered the medial compartment. The patient had grade 4 changes of the medial femoral condyle. He also had an extensive posterior medial meniscus tear with unstable tissue at the root. This was debrided with a shaver device as well as a meniscal biter and a cautery device back to a stable base of tissue. Once we fully debrided the medial meniscus, we moved to the lateral compartment. Again, the patient had an extensive lateral meniscal tear. He had unstable tissue, which was debrided with a shaver device as well back to a stable base of tissue. We performed a final irrigation and debridement of the synovium. We then injected local anesthetic. The patient was then taken out of anesthesia after his wounds were closed. He was taken to the recovery room. Job ID: [id number]
== END 2019-01-04 15:32 | disposition home or self-care (01) ==
LOC: SDC 10:17
PROVIDERS: ATTEND Orthopaedic Surgery
PROC: 0SBD4ZZ Excision of Left Knee Joint, Percutaneous Endoscopic Approach (ICD-10-PCS; principal; 2019-01-04)
PROC: 0SBD4ZZ Excision of Left Knee Joint, Percutaneous Endoscopic Approach (ICD-10-PCS; 2019-01-04)
DX: S83.242A Other tear of medial meniscus, current injury, left knee, initial encounter (principal); S83.282A Other tear of lateral meniscus, current injury, left knee, initial encounter; G25.81 Restless legs syndrome; Z91.81 History of falling; Z79.82 Long term (current) use of aspirin; Z79.899 Other long term (current) drug therapy; Z87.891 Personal history of nicotine dependence; Z88.0 Allergy status to penicillin; Z88.5 Allergy status to narcotic agent
CPT/HCPCS: J0670; J3010; J3490

== ENCOUNTER 2019-05-18 17:38 | Emergency (ER) | payer MEDICARE, SELFPAY ==
--- NOTE | 2019-05-18 18:16 | RAD ---
XR Hand Lt 3 View STANDARD History: Laceration Comparison: None Findings: Soft tissue laceration at the level of the thumb metacarpal with palmar subluxation of the metacarpal phalangeal joint. Cortical screw through the radial styloid in a medial direction. Old fracture ulnar styloid. Widening of the scapholunate interval with proximal migration of the capitate as well as mildly advan favio degenerative disease of the radiocarpal joint. Impression: 1. Soft tissue laceration dorsal aspect of the thumb the level of the metacarpal diaphysis with michel r subluxation of the metacarpal phalangeal joint suggesting extensor tendon injury. 2. Chronic findings as described.
[2019-05-18 19:52] LABS: #Basophils 0.1 thou/uL (0.0-0.2); #Eosinphils 0.3 thou/uL (0.0-0.7); #Lymphocytes 2.2 thou/uL (1.20-3.40); #Monocytes 0.9 thou/uL (0.11-0.59); %Basophils 0.9 % (0.0-1.0); %Eosinophils 3.1 % (0.0-10.0); %Lymphocytes 23.4 % (21.0-51.0); %Neutrophils 63.6 % (42.0-75.0); Hemoglobin 13.9 g/dL (14.0-18.0); Mean Corpuscular HGB CONC 32.2 g/dL (32.0-36.0); Mean Corpuscular Hemoglobin 30.8 pg (27.0-31.0); Mean Corpuscular Volume 95.6 fL (78.0-98.0); Mean Platelet Volume 6.6 fL (7.4-10.4); Platelet Count 238 thou/uL (130-400); RBC Distribution Width 12.5 % (11.5-14.5); Red Blood Cell (RBC) Count 4.51 mill/uL (4.70-6.10); White Blood Cell (WBC) Count 9.4 thou/uL (4.8-10.8)
[2019-05-18 20:12] LABS: ALT (SGPT) 25 U/L (8-55); AST (SGOT) 19 U/L (5-34); Albumin 3.9 g/dL (3.4-4.8); Alkaline Phosphatase 61 U/L (40-110); Anion Gap 10 mmol/L (10-20); BUN (Urea Nitrogen) 13 mg/dL (8.4-25.7); Bilirubin, Total 0.5 mg/dL (0.2-1.2); Calc. Creatinine Clearance 0 mL/min (70-130); Calcium 8.6 mg/dL (7.8-10.44); Carbon Dioxide 28 mmol/L (23-31); Chloride 103 mmol/L (98-107); Estimated GFR-MDRD 71; Globulin 2.8 g/dL (2.4-3.5); Glucose 102 mg/dL (83-110); Potassium 3.9 mmol/L (3.5-5.1); Protein, Total 6.7 g/dL (5.8-8.1); Sodium 137 mmol/L (136-145)
[2019-05-18] MEDS ORDERED: Adacel (T-DAP) 0.5 ML SYRINGE ONE (20:15)
[2019-05-18] MEDS ORDERED: CEFAZOLIN 1 GM VIAL ONE (20:31)
[2019-05-18] MEDS ORDERED: Sodium Chloride 0.9% 100 ML ONE (20:32)
== END 2019-05-18 23:20 | disposition home or self-care (01) ==
LOC: ERS 17:38
DX: S61.012A Laceration without foreign body of left thumb without damage to nail, initial encounter (principal); K21.9 Gastro-esophageal reflux disease without esophagitis; F17.220 Nicotine dependence, chewing tobacco, uncomplicated; Z79.82 Long term (current) use of aspirin; Z23 Encounter for immunization; Z79.899 Other long term (current) drug therapy; W26.0XXA Contact with knife, initial encounter; Y92.009 Unspecified place in unspecified non-institutional (private) residence as the place of occurrence of the external cause
CPT/HCPCS: 29125; 36415; 80053; 85025; 90471; 90715; 96361; 96365; J0690; J3490

== ENCOUNTER 2019-05-19 12:45 | Day surgery (SDC) | payer MEDICARE ==
[~2019-05-19 12:45] MED LIST: Dexamethasone 20 MG/5 ML VIAL ONE; Glycopyrrolate 0.2 MG/ML 5 ML SYRINGE ONE; Lidocaine 1% PF 5 ML VIAL ONE; Ondansetron PF 4 MG/2 ML Vial ONE; PROPOFOL 200 MG/20 ML VIAL ONE; ePHEDrine/0.9% NaCl/PF SYRINGE 50 mg/10 ml ONE
[2019-05-19] MEDS ORDERED: Fentanyl 100 MCG/2 ML VIAL ONE ×2 (13:28→15:59)
[2019-05-19] MEDS ORDERED: Bacitracin Zinc Ointment 30 gm TUBE ONE (13:55)
[2019-05-19] MEDS ORDERED: Bupivacaine PF 0.5% 30 ML VIAL ONE (13:55)
[2019-05-19] MEDS ORDERED: Betamet Acet/Betamet Na Ph 30 MG/5 ML VIAL ONE (13:55)
[2019-05-19] MEDS ORDERED: CEFAZOLIN 1 GM VIAL ONE (15:26)
[2019-05-19] MEDS ORDERED: Ketorolac Tromethamine 30 MG/ML VIAL ONE (17:43)
--- NOTE | 2019-05-20 09:30 | OP ---
DATE OF PROCEDURE: 05/19/2019 PREOPERATIVE DIAGNOSIS: Left thumb open wound secondary to saw with extensor pollicis longus, pollicis brevis laceration. POSTOPERATIVE DIAGNOSES: Left thumb open wound secondary to saw with extensor pollicis longus, pollicis brevis laceration with a 5 cm wound, extensor pollicis brevis and extensor pollicis longus lacerations complete, minimal debris, and cutaneous digital nerve laceration, especially on the web space site. PROCEDURE PERFORMED: 1. Wound debridement. 2. Wound closure, 5 cm. 3. Extensor pollicis longus repair. 4. Extensor pollicis brevis repair. 5. Digital nerve repair under magnification. 6. Digital nerve neuroplasty. 7. Debridement of open material associated with impression fracture of the bone. SPECIMEN REMOVED: None. TOURNIQUET TIME: 50 minutes. FINDINGS: Again minimal debris, laceration, dorsal radial digital nerve branch and there was excellent circulation. DESCRIPTION OF PROCEDURE: After successful general endotracheal anesthesia, the limb was prepped and draped. We gave the patient 10 mL of 0.5% Marcaine along the injury area, exsanguinated the limb and inflated tourniquet to 250 mmHg pressure. We extended the wound 2.5 cm distal and 2 cm proximal. Dissected the flap, discovered that the patient's primary radial side of the finger digital dorsal nerve was intact, but the ulnar side at the lacerated right near the extensor pollicis brevis. Underneath the extensor pollicis brevis laceration, there was an impression fracture through the soft tissue lining of periosteum. We then began debridement of this area. We debrided the material associated with open fracture using the curette, Richmond blade, tenotomy scissors. We irrigated with 3 L Pulsavac pressure. The depth was only approximately 2 mm below the thumb, metacarpal was intact and stable fracture for open treatment of the distal phalanx of the thumb, metacarpal fracture. We then once finished irrigation, closed the periosteum here with a 4-0 Monocryl undyed. With the thumb, we hyperextended, web space abduction as well as IP joint hyperextension, the extensor pollicis brevis back to itself using interrupted [id number] of 4-0 Prolene without undue tension. With the thumb still in the hyperextended position, we then used the Miguel-Larisa technique with 6 strands and using a 4-0 Supramid looped suture to reapproximate the ends and then over-sew just as we did for flexor tendon with a running 6-0 Prolene interlocking. We then tested the repair, there was stable to the level of the middle finger. At that point, the patient had the repairs done. We irrigated again, and we dissected the nerves and neuroplasty and saw that the dorsal radial was intact, but the dorsal ulnar branch was cut approximately 3/[address] through. We brought a 9-0 Nurolon to field and used a suture of Nylon to repair the digital nerve branch with 3 individual sutures. Then on magnification, it looked excellent, we then reinspected the wound, saw no dirt particles, so we deflated tourniquet, closed the wound with interrupted 5-0 nylon in a mattress pattern. Placed the final 10 mL of 0.5% Marcaine, arelis-incisional block, placed the arm in a bulky dressing with the thumb abducted and then to protect it from tearing the tendons again before give a full freedom, the patient acknowledged with thanks. Job ID: [id number]
== END 2019-05-19 19:35 | disposition home or self-care (01) ==
LOC: SDC 12:45
PROVIDERS: ATTEND Orthopaedic Surgery Hand Surgery
PROC: 0LM80ZZ Reattachment of Left Hand Tendon, Open Approach (ICD-10-PCS; principal; 2019-05-19)
PROC: 0LM80ZZ Reattachment of Left Hand Tendon, Open Approach (ICD-10-PCS; 2019-05-19)
PROC: 01Q60ZZ Repair Radial Nerve, Open Approach (ICD-10-PCS; 2019-05-19)
DX: S66.222A Laceration of extensor muscle, fascia and tendon of left thumb at wrist and hand level, initial encounter (principal); Z79.82 Long term (current) use of aspirin; Z79.899 Other long term (current) drug therapy; Z88.0 Allergy status to penicillin; Z88.5 Allergy status to narcotic agent
CPT/HCPCS: 93005; 93010; J0690; J0702; J1100; J1885; J2001; J2405; J2704; J3010; J3490; S0020

== ENCOUNTER 2019-06-03 09:43 | Outpatient (CLI) | payer MEDICARE ==
--- NOTE | 2019-06-03 13:49 | MRI ---
MRI LEFT WRIST PERFORMED WITHOUT CONTRAST ENHANCEMENT: Date: 06/03/2019 HISTORY: Laceration with injury to EPL tendon. COMPARISON: Plain film examination of 05/18/2019. FINDINGS: A complete tear of the EPL tendon is identified at the level of the mid portion of the first metacarp al. There is tendon seen distal to this to its distal phalanx attachment. Proximal to this level it i s very difficult to definitively identify the tendon at any level. There are some edema changes at th e musculotendinous junction, but I do not see any bald tendon at this level. There may potentially be some tendon extending to the radial styloid level. Artifact related to the screw within the distal r adius significantly obscures the detail in this region. It is possible the tendon is retracted to thi s level. Distal to this level, I do not see any definite EPL tendon. The EPB tendon appears intact. D eformity at the scapholunate joint is noted. Artifact precludes detailed evaluation of this area. The re are arthritic changes at the level of the radial ulnar joint space and avulsion injury of the ulna r styloid. IMPRESSION: Complete tear of the EPL tendon. The tendon is lacerated at the first metacarpal level, approximately mid shaft level, and is seen extending distally from this level. The proximal retraction of the tend on is very difficult to ascertain. I can see no definitive tendon from this level to the level of the proximal radius. There does appear to be some edema change at the musculotendinous junction of the E PL, but I do not see a retracted balled-up tendon at any level. It is potentially being obscured by t he artifact related to the screw through the radial styloid. Also, detail may be limited if the tendo n has also become interstitially torn and therefore difficult to visualize. These findings were reviewed with Dr. Ramos. POS: [facility]
== END 2019-06-03 09:44 | disposition home or self-care (01) ==
LOC: SCSMRI 09:43
PROVIDERS: ATTEND Orthopaedic Surgery Hand Surgery
DX: S66.212A Strain of extensor muscle, fascia and tendon of left thumb at wrist and hand level, initial encounter (principal)

== ENCOUNTER 2020-01-04 15:09 | Outpatient (CLI) | payer MEDICARE | END 2020-01-04 15:10 | disposition home or self-care (01) | LOC: CTENTCT 15:09 | PROVIDERS: ATTEND Otolaryngology Plastic Surgery within the Head & Neck | DX: J32.9 Chronic sinusitis, unspecified (principal) | CPT/HCPCS: 70486 ==

== ENCOUNTER 2020-01-18 13:48 | Outpatient (CLI) | payer MEDICARE ==
--- NOTE | 2020-01-18 15:13 | MRI ---
MRI brain with and without contrast: DATE: 01/18/2020 HISTORY: 74-year-old male with severe headache TECHNIQUE: Multiplanar, multisequence MRI of the brain obtained pre and post IV injection of gadolinium based co ntrast agent. FINDINGS: There is no obstructive hydrocephalus. There is no midline shift or any other evidence of mass effect . There is no extra-axial fluid collection. There are mild chronic ischemic white matter changes due to microvascular atherosclerosis, typical for this age group. There is otherwise no major intra-a xial signal abnormality, abnormal enhancement, mass, recent hemorrhage, or restricted diffusion. No dural venous sinus thrombosis. Diffuse brain parenchymal volume loss, typical for age. IMPRESSION: 1) mild chronic ischemic white matter changes and mild involutional changes. 2) otherwise negative
== END 2020-01-18 13:49 | disposition home or self-care (01) ==
LOC: SCSMRI 13:48
PROVIDERS: ATTEND Otolaryngology Plastic Surgery within the Head & Neck
DX: R51.9 Headache, unspecified (principal); I67.82 Cerebral ischemia
CPT/HCPCS: 70553; 82565

== ENCOUNTER 2020-03-30 09:44 | Outpatient (CLI) | payer MEDICARE ==
--- NOTE | 2020-03-30 11:23 | MRI ---
MRI OF THE LEFT KNEE WITHOUT CONTRAST: INDICATION: Primary osteoarthrosis of the left knee. COMPARISON: Prior exam dated 07/03/2018. FINDINGS: Motion artifact slightly limits image detail. No large joint effusion is evident. There is a small Rudolph's cyst. There is mild diffuse chondrosis i nvolving the patellar articular cartilage, stable to the prior exam. The large full-thickness articular cartilage defect involving the medial femoral condyle measures approximately 1.7 cm in its mediolateral dimension and 2.8 cm in its greatest AP dimension and appears slightly more pronounced on the prior exam. The complex tear involving the medial meniscus with a predominantly radial compone nt involving the central posterior horn of the medial meniscus partial medial extrusion is again seen. Horizontal component involving portions of the body and posterior junction are similar appearin g. The long segment horizontally oriented tear involving the lateral meniscus, anterior horn, body and posterior horn, is stable. There is now mucoid degeneration of the ACL. PCL, MCL and LCLC are in tact. New small subchondral cystlike abnormalities seen underlying the lateral tibial compartment. There are small marginal osteophytes. IMPRESSION: 1. Worsening mild osteoarthrosis of the left knee. 2. Medial and lateral menisci tears. 3. Mucoid degeneration the ACL. Transcribed Date/Time: 03/30/2020 11:27 AM
== END 2020-03-30 09:45 | disposition home or self-care (01) ==
LOC: BICMRI 09:44
PROVIDERS: ATTEND Orthopaedic Surgery
DX: M17.12 Unilateral primary osteoarthritis, left knee (principal); S83.242A Other tear of medial meniscus, current injury, left knee, initial encounter; S83.282A Other tear of lateral meniscus, current injury, left knee, initial encounter

== ENCOUNTER 2020-04-26 08:18 | Outpatient (CLI) | payer MEDICARE ==
[2020-04-26 14:46] LABS: Bilirubin Neg (Negative); Blood, Urine Negative (Negative); Clarity Clear (Clear); Glucose, Urine (Dipstick) Normal (Negative); Ketone, Urine 5 mg/dL (Negative); Leukocyte Negative (Negative); Nitrite Negative (Negative); Protein, Urine (Dipstick) 15 mg/dl (Neg-Trace)
[2020-04-26 14:53] LABS: #Basophils 0.1 10x3/uL (0.0-0.2); #Eosinphils 0.2 10x3/uL (0.0-0.5); #Monocytes 0.6 10x3/uL (0.0-1.1); #Neutrophils 3.3 10x3/uL (1.5-8.4); %Basophils 1.1 % (0.0-2.0); %Eosinophils 2.7 % (0.0-6.0); %Monocytes 9.2 % (0.0-10.0); %Neutrophils 49.7 % (40.0-75.0); Hemoglobin 14.9 g/dL (14.0-18.0); Mean Corpuscular HGB CONC 33.1 G/DL (32.0-36.0); Mean Corpuscular Hemoglobin 31.5 PG (27.0-33.0); Mean Corpuscular Volume 95.1 fl (80.0-100.0); Mean Platelet Volume 10.2 fl (7.4-10.4); Platelet Count 256 10x3/uL (130-400); RBC Distribution Width 12.8 % (11.5-14.5); Red Blood Cell (RBC) Count 4.73 10x6/uL (4.40-5.80); White Blood Cell (WBC) Count 6.6 10x3/uL (4.5-11.0)
[2020-04-26 15:05] LABS: Bacteria/HPF Rare-Few HPF (None Seen); Mucous/LPF 3+ LPF (<2+); RBC/HPF None Seen HPF (0-3); Squamous Epithelial 0-3 HPF (0-3); WBC/HPF 0-3 HPF (0-3)
[2020-04-26 15:06] LABS: Calcium Oxalate Crystals 3+ HPF (None Seen)
[2020-04-26 15:14] LABS: Prothrombin Time 10.6 sec (9.5-12.1)
[2020-04-26 15:18] LABS: Anion Gap 15 mmol/L (10-20); BUN (Urea Nitrogen) 13 mg/dL (8.4-25.7); Calc. Creatinine Clearance 0 mL/min (70-130); Calcium 8.8 mg/dL (7.8-10.44); Carbon Dioxide 22 mmol/L (23-31); Chloride 105 mmol/L (98-107); Glucose 154 mg/dL (83-110); Potassium 4.1 mmol/L (3.5-5.1); Sodium 138 mmol/L (136-145)
[2020-04-27 01:37] LABS: SARS-CoV-2 MS2 Positive; SARS-CoV-2 N Gene Negative; SARS-CoV-2 S Gene Negative; SARS-CoV-2 by NAA Not Detected (NotDetected); SARS-CoV-2 orf1ab Negative
== END 2020-04-26 08:19 | disposition home or self-care (01) ==
LOC: LABBT 08:18
PROVIDERS: ATTEND Orthopaedic Surgery
DX: Z01.818 Encounter for other preprocedural examination (principal); M17.12 Unilateral primary osteoarthritis, left knee; Z20.822 Contact with and (suspected) exposure to COVID-19
CPT/HCPCS: 80048; 81001; 85025; 85610; 87081; 93005; U0003; U0005; 87635; 93010

== ENCOUNTER 2020-06-07 05:47 | Day surgery (SDC) | payer MEDICARE ==
[2020-06-06 11:05] VITALS: BMI 29.8
[2020-06-07] MEDS ORDERED: Tranexamic Acid 1,000 MG/10 ML VIAL ONE ×2 (06:11→10:29)
[2020-06-07] MEDS ORDERED: Clindamycin/D5W 600 mg/50 ml Premix Bag ONE (06:12)
[2020-06-07] MEDS ORDERED: Sodium Chloride 0.9% 100 ML ONE (06:12)
[2020-06-07] MEDS ORDERED: Vancomycin 1.5 GRAM/300 ML BAG ONE (06:12)
[2020-06-07] MEDS ORDERED: Clindamycin/D5W 900 mg/50 ml Premix Bag ONE ×2 (06:12→15:04)
[2020-06-07] MEDS ORDERED: Fentanyl 100 MCG/2 ML VIAL ONE ×3 (06:21→10:10)
[2020-06-07] MEDS ORDERED: Midazolam HCl 2 mg/2 ml Vial ONE (06:21)
[2020-06-07] MEDS ORDERED: Fentanyl 100 MCG/2 ML VIAL IV PRN (07:57)
[2020-06-07] MEDS ORDERED: Ropivacaine HCl/PF 250 ML in Premix Bag 1 BAG NERVE BLCK SCH (08:00)
[2020-06-07] MEDS ORDERED: Zolpidem Tartrate 5 MG TAB PO PRN ×2 (08:00→09:11)
[2020-06-07] MEDS ORDERED: Promethazine HCl 25 MG/ML VIAL IM PRN ×2 (08:00→09:11)
[2020-06-07] MEDS ORDERED: Ondansetron PF 4 MG/2 ML Vial IVP PRN ×2 (08:00→09:11)
[2020-06-07] MEDS ORDERED: traMADol HCl 50 MG TAB PO PRN ×2 (08:00→09:15)
[2020-06-07] MEDS ORDERED: Bupivacaine PF 0.5% 30 ML VIAL ONE (08:13)
[2020-06-07] MEDS ORDERED: Acetaminophen 325 MG TAB PO PRN (09:11)
[2020-06-07] MEDS ORDERED: diphenhydrAMINE 25 MG CAP PO PRN (09:11)
[2020-06-07] MEDS ORDERED: Tranexamic Acid 1,000 MG in Sodium Chloride 0.9% 100 ML IVPB SCH (09:15)
[2020-06-07] MEDS ORDERED: PHENYLEPHRINE-NS 100 MCG/ML 10 ML SYRINGE ONE (09:24)
[2020-06-07] MEDS ORDERED: PROPOFOL 200 MG/20 ML VIAL ONE (09:24)
[2020-06-07] MEDS ORDERED: Ropivacaine 2% HCl/PF (20 MG/10 ML VIAL) ONE (09:24)
[2020-06-07] MEDS ORDERED: Ketorolac Tromethamine 30 MG/ML VIAL ONE (09:24)
[2020-06-07] MEDS ORDERED: Ondansetron PF 4 MG/2 ML Vial ONE (09:24)
[2020-06-07] MEDS ORDERED: Dexamethasone 20 MG/5 ML VIAL ONE (09:24)
[2020-06-07] MEDS ORDERED: Ropivacaine 0.5% HCl/PF (150 MG/30 ML VIAL) ONE (09:24)
[2020-06-07] MEDS ORDERED: Ondansetron HCl/PF 4 MG/2 ML Vial IVP PRN (09:26)
--- NOTE | 2020-06-07 10:47 | OP ---
DATE OF PROCEDURE: 06/07/2020 PREOPERATIVE DIAGNOSIS: Left knee osteoarthrosis. POSTOPERATIVE DIAGNOSIS: Left knee osteoarthrosis. PROCEDURE PERFORMED: Left total knee replacement using Panoramic Power pinless navigation. HADOOP SOFTWARE ENGINEER: Jasen Kaba PA-C The faculty i on call medical assistant surgeon was present throughout the procedure to include the approach. All cut and preparation of the femur and tibia and patella followed by placement of the final implant and closure of the knee wound. He had a general anesthetic. He also had a preoperative block. IMPLANTS: Erica Triathlon total knee system. The femur was a size 6 cruciate retaining left femur, we used a size 6 primary tibial baseplate, was a 6 x 9 mm X3 tibial poly and a 29 x 9 X3 asymmetric patella. DISPOSITION: He did go to recovery room in stable condition. INDICATIONS: This is a 74-year-old male, who has failed nonoperative treatment for knee arthritis and at this time wished to have his knee replaced. ANESTHESIA: General anesthetic. BLOOD LOSS: Minimal. COMPLICATIONS: None. TOURNIQUET TIME: PROCEDURE IN DETAIL: After all appropriate consent forms were explained and signed, the patient was taken back to the operating room and at this time was given general anesthetic. Once the level of anesthesia was appropriate, a well-padded tourniquet was placed on the left leg, and the leg was then prepped and draped in standard surgical fashion. The limb was exsanguinated and tourniquet taken up to 300 mmHg. Midline incision was made with a 10 blade down through the skin and subcutaneous tissue. Bovie electrocautery was used to coagulate any brisk venous bleeding. A new blade was used to make a medial parapatellar arthrotomy. Small subperiosteal release was performed medially and excess fat pad was removed. The knee was flexed up to gain access to the femur. The femur was navigated and distal femoral resection was made. Epicondylar access was used to align our sizing jig and this was pinned in place. We sized our femur to be a 6 cruciate retaining left femur. 4:1 cutting block was applied and pinned. Anterior and posterior chamfer cuts were then made. We navigated out our proximal tibia and made our proximal tibial resection. Spreaders were used to remove any posterior osteophytes off the back of the femur as well as remaining meniscal tissue. A long alignment edi was then used to achieve correct rotation of our tibial baseplate and a size 6 was chosen. This was pinned in place. We trialed the polyethylene and a 6 x 9 mm X3 tibial polyethylene gave us full extension and good stability throughout range of motion. Two towel clips and a saw were used to cut our patella. Three lug nuts were drilled and 29 x 9 X3 asymmetric patella was trialed which sat nicely in the trochlear groove. We then drilled our femur and punched our tibia. All components were removed. The knee was thoroughly irrigated and dried. Cement was mixed into the cement gun on the back table. Components were then placed. The knee was held out in full extension until the cement had dried. All excess bone cement was removed. Multiple #2 Vicryl stitches as well as a Quill were used to close our extensor mechanism. 0 Quill followed by a running Monoderm was then used to close the skin. Surgicel glue was then used on the skin. Once this had dried, soft tissue dressing was applied to the limb, tourniquet was let down, and the toes pinked up nicely. The patient was then awakened and taken to the recovery room in stable condition. All counts were correct at the end of the case. The patient did receive preoperative IV antibiotics. The patient was injected with Marcaine for postoperative pain relief. Job ID: [id number]
[2020-06-07] MEDS: Sodium Chloride 0.9% 1,000 ML IV SCH ×2 (11:00→19:59)
[2020-06-07] MEDS: rOPINIRole HCl 0.25 MG TAB PO SCH ×2 (13:09→20:01)
[2020-06-07] MEDS ORDERED: rOPINIRole HCl 0.25 MG TAB PO SCH (13:15)
[2020-06-07] MEDS ORDERED: Sodium Chloride 0.9% 10 ML ONE (15:28)
[2020-06-07] MEDS: Clindamycin/D5W 900 MG in Premix Bag 1 BAG IVPB SCH ×2 (15:36→22:01)
[2020-06-07] MEDS ORDERED: Vancomycin HCl 1.5 GM in Sodium Chloride 0.9% 250 ML 300 ML IVPB SCH (18:00)
[2020-06-07] MEDS: Ketorolac Tromethamine 30 MG/ML VIAL IVP SCH ×3 (18:24→23:30)
[2020-06-07] MEDS ORDERED: Vancomycin 1.5 GRAM/300 ML BAG 1.5 GM in Premix Bag 1 BAG IVPB SCH (19:00)
[2020-06-07] MEDS: Aspirin 81 mg Enteric Coated Tablet PO SCH (20:01)
[2020-06-07] MEDS: Senokot S 8.6-50 MG TAB PO SCH (20:01)
[2020-06-07] MEDS: Ferrous Gluconate 324 MG TAB PO SCH (20:01)
[2020-06-07] MEDS: Loratadine 10 MG TAB PO SCH (20:01)
[2020-06-07] MEDS: Tamsulosin HCl 0.4 MG CAP PO SCH (20:01)
[2020-06-07] MEDS: rOPINIRole HCl 1 MG TAB PO SCH (20:01)
[2020-06-07] MEDS: Dutasteride 0.5 MG CAP PO SCH (20:01)
[2020-06-08] MEDS: traMADol HCl 50 MG TAB PO PRN ×3 (04:03→18:08)
[2020-06-08 05:33] LABS: Hemoglobin 12.6 g/dL (14.0-18.0); Mean Corpuscular HGB CONC 33.2 g/dL (32.0-36.0); Mean Corpuscular Hemoglobin 31.8 pg (27.0-31.0); Mean Corpuscular Volume 95.8 fL (78.0-98.0); Mean Platelet Volume 7.2 fL (7.4-10.4); Platelet Count 230 thou/uL (130-400); RBC Distribution Width 12.1 % (11.5-14.5); Red Blood Cell (RBC) Count 3.96 mill/uL (4.70-6.10); White Blood Cell (WBC) Count 12.4 thou/uL (4.8-10.8)
[2020-06-08] MEDS: Clindamycin/D5W 900 MG in Premix Bag 1 BAG IVPB SCH ×3 (05:36→21:02)
[2020-06-08] MEDS: Ketorolac Tromethamine 30 MG/ML VIAL IVP SCH ×4 (05:36→23:50)
[2020-06-08] MEDS: Sodium Chloride 0.9% 1,000 ML IV SCH ×2 (05:37→14:44)
--- NOTE | 2020-06-08 08:30 | PRG ---
DATE OF SERVICE: 06/08/2020 SUBJECTIVE: Candido is a 74-year-old male, postop day #1 from a left total knee arthroplasty. He is comfortable and doing relatively well this morning. He has no complaints. OBJECTIVE: VITAL SIGNS: Temperature 98.5, pulse 79, respiratory rate 16 and unlabored, blood pressure is 128/69. GENERAL: He is alert and oriented to person, place, time, and situation, responsive and appropriate with examiner. EXTREMITIES: Incision is clean. No strike through. No erythema. He is neurovascularly intact. LABORATORY DATA: Hemoglobin and hematocrit 12.6 and 37.9 with a white count of 12.4. IMPRESSION: 1. A 74-year-old male, postop day #1, left total knee arthroplasty. 2. Leukocytosis, etiology unclear. 3. Mild asymptomatic postoperative anemia. PLAN: Continue current care. Initiate physical therapy. Continue to observe for hemorrhage and also pain control. Job ID: [id number]
[2020-06-08] MEDS ORDERED: Non-Formulary Item 1 EACH (Fexofenadine Hcl [Allegra Allergy] 60 MG Tablet) PO SCH (09:00)
[2020-06-08] MEDS: Aspirin 81 mg Enteric Coated Tablet PO SCH ×2 (09:10→21:01)
[2020-06-08] MEDS: Escitalopram Oxalate 10 mg Tablet PO SCH (09:10)
[2020-06-08] MEDS: rOPINIRole HCl 0.25 MG TAB PO SCH ×2 (09:11→22:11)
[2020-06-08] MEDS: Multivitamin W/ Minerals 1 TAB PO SCH (09:11)
[2020-06-08] MEDS: Ferrous Gluconate 324 MG TAB PO SCH ×2 (09:11→21:01)
[2020-06-08] MEDS: HYDROcodone/Acetaminophen 10/325 mg Tablet PO PRN ×3 (09:12→21:08)
[2020-06-08] MEDS: Senokot S 8.6-50 MG TAB PO SCH ×2 (09:12→21:01)
[2020-06-08] MEDS: Loratadine 10 MG TAB PO SCH (21:01)
[2020-06-08] MEDS: Dutasteride 0.5 MG CAP PO SCH (21:01)
[2020-06-08] MEDS: Tamsulosin HCl 0.4 MG CAP PO SCH (21:01)
[2020-06-08] MEDS: rOPINIRole HCl 1 MG TAB PO SCH (22:11)
[2020-06-09] MEDS: Ketorolac Tromethamine 30 MG/ML VIAL IVP SCH (05:26)
[2020-06-09] MEDS: Clindamycin/D5W 900 MG in Premix Bag 1 BAG IVPB SCH (05:26)
[2020-06-09] MEDS: Sodium Chloride 0.9% 1,000 ML IV SCH ×2 (05:27→11:36)
[2020-06-09] MEDS: traMADol HCl 50 MG TAB PO PRN (05:37)
[2020-06-09 06:30] LABS: Hemoglobin 11.6 g/dL (14.0-18.0); Mean Corpuscular HGB CONC 33.4 g/dL (32.0-36.0); Mean Corpuscular Volume 95.7 fL (78.0-98.0); Mean Platelet Volume 7.5 fL (7.4-10.4); Platelet Count 203 thou/uL (130-400); Red Blood Cell (RBC) Count 3.62 mill/uL (4.70-6.10); White Blood Cell (WBC) Count 11.5 thou/uL (4.8-10.8)
[2020-06-09] MEDS: Ferrous Gluconate 324 MG TAB PO SCH (09:31)
[2020-06-09] MEDS: HYDROcodone/Acetaminophen 10/325 mg Tablet PO PRN ×2 (09:31→14:05)
[2020-06-09] MEDS: rOPINIRole HCl 0.25 MG TAB PO SCH (09:31)
[2020-06-09] MEDS: Aspirin 81 mg Enteric Coated Tablet PO SCH (09:31)
[2020-06-09] MEDS: Escitalopram Oxalate 10 mg Tablet PO SCH (09:31)
[2020-06-09] MEDS: Multivitamin W/ Minerals 1 TAB PO SCH (09:31)
[2020-06-09] MEDS: Senokot S 8.6-50 MG TAB PO SCH (09:34)
[2020-06-09 12:10] VITALS: BP 116/64; TEMP 98.9
== END 2020-06-09 14:39 | disposition home or self-care (01) ==
LOC: SDC 05:47 → SJJU 09:11 → SDC 06-09 14:39
PROVIDERS: ATTEND Orthopaedic Surgery
PROC: 0SRD0J9 Replacement of Left Knee Joint with Synthetic Substitute, Cemented, Open Approach (ICD-10-PCS; principal; 2020-06-07)
PROC: 8E0YXBZ Computer Assisted Procedure of Lower Extremity (ICD-10-PCS; 2020-06-07)
PROC: 3E0T3BZ Introduction of Anesthetic Agent into Peripheral Nerves and Plexi, Percutaneous Approach (ICD-10-PCS; 2020-06-07)
PROC: 3E0T3BZ Introduction of Anesthetic Agent into Peripheral Nerves and Plexi, Percutaneous Approach (ICD-10-PCS; 2020-06-07)
DX: M17.12 Unilateral primary osteoarthritis, left knee (principal); S83.242A Other tear of medial meniscus, current injury, left knee, initial encounter; S83.282A Other tear of lateral meniscus, current injury, left knee, initial encounter; G89.18 Other acute postprocedural pain; D72.829 Elevated white blood cell count, unspecified; D64.9 Anemia, unspecified; N40.0 Benign prostatic hyperplasia without lower urinary tract symptoms; Z87.891 Personal history of nicotine dependence; Z79.82 Long term (current) use of aspirin; Z79.899 Other long term (current) drug therapy; Z88.0 Allergy status to penicillin; Z88.5 Allergy status to narcotic agent
CPT/HCPCS: 20985; 27447; 64445; 64448; 85027; 97110 ×3; 97116 ×3; 97530; C1713; C1776; 36415; J1100; J1885; J2250; J2405; J2704; J2795; J3010; J3370; J3490; Q0163; S0020